=== PATIENT | female | born 1995 | race Caucasian/White ===

== ENCOUNTER 2017-03-25 08:59 | Emergency (ER) | payer OTHER ==
[~2017-03-25] VITALS: Ht 154.9 cm; Wt 72.0 kg
[~2017-03-25 08:59] MED LIST: Z.0.NO CURRENT MEDS
[2017-03-25 09:00] VITALS: BP 124/79; PULSE 102; RESP 12; TEMP 98.8; O2SAT 99
[2017-03-25] MEDS ORDERED: ACETAMINOPHEN 325 MG TAB PO ONE (10:15)
[2017-03-25] MEDS ORDERED: SODIUM CHLORIDE 0.9% FLUSH 10 ML FLUSH IV FLUSH PRN (10:15)
--- NOTE | 2017-03-25 10:17 | PD ---
HPI Chief Complaint: Related Problem Time Seen by Provider: 10:08 Travel History International Travel<30 days: No Contact w/Intl Traveler<30days: No Traveled to known affect area: No History of Present Illness HPI patient is a 21-year-old female at approximately 2 weeks gestational age presents emergency department for evaluation of lower quadrant abdominal cramping and some mild spotting. Patient states she think she is now. She states the pain is fairly mild, no nausea no vomiting no diarrhea no constipation or loss of fluid. She states that her second didn't in miscarriage a few months ago. Does not know her blood type. States the pain is mild nonradiating constant, associated with vaginal spotting, context is , duration is this morning. PFSH Past Medical History Medical History: Denies Significant Hx Diminished Hearing: No Immunizations Current: Yes ?: LMP: 02/14/17 : 3 Para: 1 Miscarriage: 1 Past Surgical History Surgical History: No Previous Surgery Social History Alcohol Use: No Tobacco Use: No Substance Use: No Allergies-Medications (Allergen,Severity, Reaction): Coded Allergies: No Known Allergies (Unverified , 03/25/17) Reported Meds & Prescriptions Reported Meds & Active Scripts Active Plus Iron 29-1 mg ( Vit-Iron Carbonyl) 29 Mg Iron-1 Mg Tab 1 Tab PO DAILY Macrobid (Nitrofurantoin Monoh/Nitrofur Macro) 100 Mg Cap 100 Mg PO BID 7 Days Review of Systems Except as stated in HPI: all other systems reviewed are Neg Physical Exam Narrative GENERAL: Well-developed well-nourished in no obvious distress SKIN: Focused skin assessment warm/dry. HEAD: Atraumatic. Normocephalic. EYES: Pupils equal and round. No scleral icterus. No injection or drainage. ENT: No nasal bleeding or discharge. Mucous membranes pink and moist. NECK: Trachea midline. No JVD. CARDIOVASCULAR: Regular rate and rhythm. No murmur appreciated. RESPIRATORY: No accessory muscle use. Clear to auscultation. Breath sounds equal bilaterally. GASTROINTESTINAL: Abdomen soft, non-tender, nondistended. Hepatic and splenic margins not palpable. Genitourinary: Declined by patient. MUSCULOSKELETAL: No obvious deformities. No clubbing. No cyanosis. No edema. NEUROLOGICAL: Awake and alert. No obvious cranial nerve deficits. Motor grossly within normal limits. Normal speech. PSYCHIATRIC: Appropriate mood and affect; insight and judgment normal. Data Data Last Documented VS Vital Signs Date Time Temp Pulse Resp B/P (MAP) Pulse Ox O2 Delivery O2 Flow Rate FiO2 03/25/17 13:20 03/25/17 13:19 76 14 98 03/25/17 10:35 Room Air 03/25/17 09:00 98.8 Orders Orders Urinalysis - C+S If Indicated (03/25/17 10:07) Ed Urine Pregnancytest Poc (03/25/17 10:07) Beta Hcg (Quant/Titer) (03/25/17 10:15) Complete Blood Count With Diff (03/25/17 10:15) Comprehensive Metabolic Panel (03/25/17 10:15) Iv Access Insert/Monitor (03/25/17 10:15) Ecg Monitoring (03/25/17 10:15) Oximetry (03/25/17 10:15) Sodium Chloride 0.9% Flush (Ns Flush) (03/25/17 10:15) Acetaminophen (Tylenol) (03/25/17 10:15) Type And Screen (03/25/17 10:15) Us Pelvis (Ques Pr/Ect)W Trans (03/25/17 11:20) Ed Discharge Order (03/25/17 13:05) Labs Laboratory Tests Test 03/25/17 10:30 White Blood Count 8.5 TH/MM3 Red Blood Count 4.37 MIL/MM3 Hemoglobin 12.4 GM/DL Hematocrit 37.7 % Mean Corpuscular Volume 86.3 FL Mean Corpuscular Hemoglobin 28.5 PG Mean Corpuscular Hemoglobin Concent 33.0 % Red Cell Distribution Width 13.7 % Platelet Count 335 TH/MM3 Mean Platelet Volume 7.7 FL Neutrophils (%) (Auto) 70.6 % Lymphocytes (%) (Auto) 24.2 % Monocytes (%) (Auto) 4.6 % Eosinophils (%) (Auto) 0.3 % Basophils (%) (Auto) 0.3 % Neutrophils # (Auto) 6.0 TH/MM3 Lymphocytes # (Auto) 2.1 TH/MM3 Monocytes # (Auto) 0.4 TH/MM3 Eosinophils # (Auto) 0.0 TH/MM3 Basophils # (Auto) 0.0 TH/MM3 CBC Comment DIFF FINAL Differential Comment Urine Color YELLOW Urine Turbidity CLEAR Urine pH 6.0 Urine Specific [place] 1.025 Urine Protein TRACE mg/dL Urine Glucose (UA) NEG mg/dL Urine Ketones NEG mg/dL Urine Occult Blood NEG Urine Nitrite NEG Urine Bilirubin NEG Urine Urobilinogen LESS THAN 2.0 MG/DL Urine Leukocyte Esterase SMALL Urine RBC LESS THAN 1 /hpf Urine WBC 2 /hpf Urine Squamous Epithelial Cells 2 /hpf Urine Bacteria RARE /hpf Urine Mucus FEW /lpf Microscopic Urinalysis Comment CULT NOT INDICATED Blood Urea Nitrogen 9 MG/DL Creatinine 0.56 MG/DL Random Glucose 85 MG/DL Total Protein 7.6 GM/DL Albumin 3.8 GM/DL Calcium Level 9.0 MG/DL Alkaline Phosphatase 59 U/L Aspartate Amino Transf (AST/SGOT) 11 U/L Alanine Aminotransferase (ALT/SGPT) 25 U/L Total Bilirubin 0.3 MG/DL Sodium Level 135 MEQ/L Potassium Level 4.1 MEQ/L Chloride Level 106 MEQ/L Carbon Dioxide Level 21.4 MEQ/L Anion Gap 8 MEQ/L Estimat Glomerular Filtration Rate 134 ML/MIN Human Chorionic Gonadotropin, Quant 3741 MIU/ML [facility] Medical Decision Making Medical Screen Exam Complete: Yes Emergency Medical Condition: Yes Differential Diagnosis vaginal bleeding and , ectopic , round ligament pain, Rh mismatch. Narrative Course patient roomed emerged Department, hCG is 3000, Rh is positive. Remainder of her labs are unremarkable. Her abdomen is benign. She was given Tylenol and on reassessment she is feeling better and is eating. Official ultrasound was obtained shows Last 24 hours Impressions Pelvis Ultrasound 03/25/17 1120 Signed Impressions: Service Date/Time: Saturday, March 25, 2017 11:42 - CONCLUSION: Probable early gestation. I cannot confirm cardiac activity. Follow up is suggested. Garry Hare MD FACR Discussed with the patient cannot completely confirm intrauterine of her recommended return to emergency department in 48 hours for repeat labs and consideration of repeat ultrasound. She verbalized understanding and agreement. She is feeling well and she stable for discharge. Discussed with her exam needs to be done in the near future and she declined it at this time. Diagnosis Primary Impression: Abdominal pain affecting Additional Impression: Asymptomatic bacteriuria Referrals: Meaghan Mccollum MD Additional Instructions: Recommend return to the emergency department in 48 hours for repeat blood work and possibly repeat ultrasound. Follow-up with your VET TECH. Med/Other Pt SpecificInfo: Prescription(s) given Scripts Vit-Iron Carbonyl ( Plus Iron 29-1 mg) 29 Mg Iron-1 Mg Tab 1 TAB PO DAILY for Nutritional Supplement, #30 TAB 9 Refills Prov: Boubacar Petit MD 03/25/17 Nitrofurantoin Monohydrate Macrocrystals (Macrobid) 100 Mg Cap 100 MG PO BID for Infection for 7 Days, #14 CAP 0 Refills Prov: Boubacar Petit MD 03/25/17 Disposition: 01 DISCHARGE HOME Condition: Stable Boubacar Petit MD Mar 25, 2017 10:17
[2017-03-25 10:35] VITALS: O2SAT 97
[2017-03-25 10:42] LABS: BASOPHIL % 0.3 % (0.0-2.0); EOSINOPHIL % 0.3 % (0.0-4.0); HEMATOCRIT 37.7 % (35.0-46.0); HEMO FLAGS DIFF FINAL; LYMPH % 24.2 % (9.0-44.0); LYMPHOCYTE # 2.1 TH/MM3 (1.0-4.8); MEAN CELL VOLUME 86.3 FL (80.0-100.0); MEAN CORPUSCULAR HEMOGLOBIN 28.5 PG (27.0-34.0); MONO % 4.6 % (0.0-8.0); NEUT % 70.6 % (16.0-70.0); PLATELET COUNT 335 TH/MM3 (150-450); RED BLOOD COUNT 4.37 MIL/MM3 (4.00-5.30); RED CELL DISTRIBUTION WIDTH 13.7 % (11.6-17.2); WHITE BLOOD COUNT 8.5 TH/MM3 (4.0-11.0)
[2017-03-25 11:00] LABS: ALT (GPT) 25 U/L (10-53); ANION GAP 8 MEQ/L (5-15); AST (GOT) 11 U/L (15-37); BICARBONATE 21.4 MEQ/L (21.0-32.0); BLOOD UREA NITROGEN 9 MG/DL (7-18); CHLORIDE 106 MEQ/L (98-107); GLOMERULAR FILTRATION RATE 134 ML/MIN (>89); POTASSIUM 4.1 MEQ/L (3.5-5.1); SODIUM (NA) 135 MEQ/L (136-145)
[2017-03-25 11:07] LABS: BACTERIA, URINE RARE /hpf; BLOOD, URINE NEG (NEG); COMMENT (UR) CULT NOT INDICATED; CULTURE IF INDICATED CULT NOT INDICATED; GLUCOSE,URINE NEG (NEG); KETONE, URINE NEG (NEG); MUCUS URINE FEW /lpf (OCC); NITRITE,URINE NEG (NEG); SQUAMOUS EPITHELIAL CELL URINE 2 /hpf (0-5); URINE COLOR YELLOW (YELLW/STRAW)
[2017-03-25 11:16] LABS: ALKALINE PHOSPHATASE 59 U/L (45-117); BETA HCG QUANT 3741 MIU/ML (0-5); TOTAL BILIRUBIN ADULT 0.3 MG/DL (0.2-1.0)
[2017-03-25 12:26] VITALS: BP 117/72; PULSE 80; RESP 14; O2SAT 98
--- NOTE | 2017-03-25 12:58 | RADRPT ---
EXAM DATE/TIME: 03/25/2017 11:42 [facility] COMPARISON: No previous studies available for comparison. INDICATIONS : Pelvic pain. LAB(S): Beta-hC MEDICAL HISTORY : . SURGICAL HISTORY : None. ENCOUNTER: Subsequent ACUITY: 1 day PAIN SCORE: 5/10 LOCATION: Bilateral pelvis MEASUREMENTS: UTERUS: 9.5 x 6.3 x 4.8 cm ENDOMETRIAL STRIPE: 17 mm RIGHT OVARY: 3.4 x 3.2 x 1.5 cm LEFT OVARY: 3.0 x 4.3 x 1.9 cm CROWN RUMP LENGTH: not seen = WKS DAYS FHR: not seen BPM FINDINGS: UTERUS: I believe is the gestational sac present within yolk sac in the uterus. RIGHT OVARY: 1.2 cm cyst LEFT OVARY: 1.3 centers S. MISCELLANEOUS: No free fluid. CONCLUSION: Probable early gestation. I cannot confirm cardiac activity. Follow up is suggested . Garry Hare MD FACR on March 25, 2017 at 12:55 Board Certified Radiologist. This report was verified electronically.
[2017-03-25] MEDS ORDERED: PREN29TA PO (13:04)
[2017-03-25] MEDS ORDERED: MACR100C2 PO (13:04)
[2017-03-25 13:19] VITALS: BP 120/78; PULSE 76; RESP 14; O2SAT 98
== END 2017-03-25 13:21 | disposition home or self-care (01) ==
LOC: NEPD 08:59
DX: O26.891 Other specified pregnancy related conditions, first trimester (principal); R10.2 Pelvic and perineal pain; Z3A.01 Less than 8 weeks gestation of pregnancy
CPT/HCPCS: 76700; 76817; 80053; 81001; 84702; 84703; 85025; 86850; 86900; 86901; 99285

== ENCOUNTER 2017-03-27 09:36 | Emergency (ER) | payer OTHER ==
[~2017-03-27] VITALS: Ht 154.9 cm; Wt 75.0 kg
[~2017-03-27 09:36] MED LIST changes: +MACR100C2 PO; +PREN29TA PO; -Z.0.NO CURRENT MEDS
[2017-03-27 09:37] VITALS: BP 121/68; PULSE 85; RESP 14; TEMP 98.8; O2SAT 96
[2017-03-27 10:00] VITALS: BP 112/61; PULSE 86; RESP 18; O2SAT 97
[2017-03-27 11:40] LABS: BETA HCG QUANT 5268 MIU/ML (0-5)
--- NOTE | 2017-03-27 12:01 | PD ---
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 She is , last initial period was February 14, she is a history of a previous miscarriage in December. She is having ongoing lower abdominal pain and spotting. Patient was seen emergency card 2 days ago and was recommended to follow-up for repeat labs. History Past Medical History Medical History: Denies Significant Hx Tetanus Vaccination: Unknown Influenza Vaccination: No LMP: 02/14/17 : 3 Para: 1 Past Surgical History Surgical History: No Previous Surgery Social History Alcohol Use: No Tobacco Use: No Allergies-Medications (Allergen,Severity, Reaction): Coded Allergies: No Known Allergies (Unverified , 03/27/17) Reported Meds & Prescriptions Reported Meds & Active Scripts Active Plus Iron 29-1 mg ( Vit-Iron Carbonyl) 29 Mg Iron-1 Mg Tab 1 Tab PO DAILY Macrobid (Nitrofurantoin Monoh/Nitrofur Macro) 100 Mg Cap 100 Mg PO BID 7 Days Review of Systems Except as stated in HPI: all other systems reviewed are Neg Physical Exam Narrative GENERAL: Well-appearing 20 year-old woman, no acute distress. SKIN: Focused skin assessment warm/dry. HEAD: Atraumatic. Normocephalic. EYES: Pupils equal and round. No scleral icterus. No injection or drainage. ENT: No nasal bleeding or discharge. Mucous membranes pink and moist. NECK: Trachea midline. No JVD. CARDIOVASCULAR: Regular rate and rhythm. No murmur appreciated. RESPIRATORY: No accessory muscle use. Clear to auscultation. Breath sounds equal bilaterally. GASTROINTESTINAL: Abdomen flat and soft. Minimal lower abdominal tenderness. MUSCULOSKELETAL: No obvious deformities. : Normal external female genitalia. Scant discharge. Mild cervical motion tenderness. No palpable uterine enlargement or adnexal masses. Data Data Last Documented VS Vital Signs Date Time Temp Pulse Resp B/P (MAP) Pulse Ox O2 Delivery O2 Flow Rate FiO2 03/27/17 10:00 86 18 112/61 (78) 97 Room Air 03/27/17 09:37 98.8 Orders Orders Beta Hcg (Quant/Titer) (03/27/17 10:14) Us Pelvis (Ques Pr/Ect)W Trans (03/27/17 ) Labs Laboratory Tests Test 03/27/17 10:35 Human Chorionic Gonadotropin, Quant 5268 MIU/ML [facility] Medical Decision Making Medical Screen Exam Complete: Yes Emergency Medical Condition: Yes Interpretation(s) LABS: HCG 5268 Pelvic ultrasound: [place] intrauterine gestation at 5 weeks 1 day, no heart activity. Differential Diagnosis Threatened AB, ectopic, miscarriage, missed demise, other Narrative Course Medical decision making Is a 20 year-old woman presents emergent arm for evaluation for possible demise. Ultrasound showed what they thought was a shooting but it sounds like there is still some concern based on the ultrasound. There is no cardiac activity. HCG is increasing but not doubling. We'll get a repeat ultrasound and then likely outpatient follow-up. FINAL: 20 year-old woman, intrauterine , early, no definable heart activity at this point. Likely early. She is considering terminating . Recommend outpatient follow-up. Diagnosis Primary Impression: Threatened Additional Impression: Intrauterine Additional Instructions: Follow-up with an laborer hoisting for further evaluation. Take [id number] vitamins daily. Return to the emergency department for any worsening abdominal pain, or any other new or worsening symptoms. Med/Other Pt SpecificInfo: No Change to Meds Disposition: 01 DISCHARGE HOME Condition: Stable Harry Hernandez MD Mar 27, 2017 12:01
--- NOTE | 2017-03-27 13:25 | RADRPT ---
EXAM DATE/TIME: 03/27/2017 12:32 [facility] COMPARISON: US PELVIS (QUEST PREG/ECTOPIC) W/TRANSVAG, March 25, 2017, 11:42. INDICATIONS : Pelvic pain with . LAB(S): Beta-hC,268 MEDICAL HISTORY : . SURGICAL HISTORY : None. ENCOUNTER: Subsequent ACUITY: 4-6 days PAIN SCORE: 7/10 LOCATION: Bilateral pelvis MEASUREMENTS: UTERUS: 9.6 x 5.6 x 5.1 cm ENDOMETRIAL STRIPE: 14 mm RIGHT OVARY: 2.8 x 3.4 x 1.5 cm LEFT OVARY: 3.7 x 3.7 x 2.7 cm FREE FLUID: Yes posterior cul de sac CROWN RUMP LENGTH: 0.2 cm = OOR WKS DAYS FHR: Nonvisualized BPM FINDINGS: UTERUS: A single intrauterine gestation observed. A gestational sac is observed with mean sac diameter of 1.0 6 cm which equals 5 weeks one day gestational age. A yolk sac and pole are observed. The crown- rump length is 0.18 cm which is below the threshold for accurate gestational age evaluation. No heart rate activity is able to be identified on the current exam. A small simple nabothian cyst. RIGHT OVARY: Ovary contains no mass or significant cystic lesion. LEFT OVARY: A 1.3 cm simple cyst is seen involving the left ovary. The left ovary is otherwise unremarkable. MISCELLANEOUS: A trace amount of free fluid in the cul-de-sac. CONCLUSION: 1. Solitary intrauterine gestation. The age by mean sac diameter is 5 weeks one day. No heart r ate activity is currently detectable but this may relate to early gestational age. Followup ultrasoun d is suggested. 2. 1.3 cm simple left ovarian cyst. Piyush Negrete Jr., MD on March 27, 2017 at 13:16 Board Certified Radiologist. This report was verified electronically.
[2017-03-27 13:36] VITALS: BP 117/63; PULSE 83; RESP 17; O2SAT 97
[2017-03-27 13:40] VITALS: BP 117/63
== END 2017-03-27 13:56 | disposition home or self-care (01) ==
LOC: NEPD 09:36
DX: O20.0 Threatened abortion (principal); Z3A.01 Less than 8 weeks gestation of pregnancy
CPT/HCPCS: 76700; 76817; 84702

== ENCOUNTER 2017-05-17 17:09 | Emergency (ER) | payer OTHER ==
[~2017-05-17] VITALS: Ht 154.9 cm; Wt 70.0 kg
[2017-05-17 17:11] VITALS: BP 125/76; PULSE 87; RESP 18; TEMP 98; O2SAT 99
[2017-05-17 18:37] LABS: BETA HCG QUANT 50608 MIU/ML (0-5)
--- NOTE | 2017-05-17 19:33 | PD ---
HPI Chief Complaint: Related Problem Time Seen by Provider: 19:31 Travel History International Travel<30 days: No Contact w/Intl Traveler<30days: No Traveled to known affect area: No History of Present Illness HPI This patient was examined in the presence of a female nurse at all times. This is a 21-year-old female whose last menstrual period was February 14. Her blood type is O+. She has been experiencing vaginal cramping. This has been ongoing for several days. She endorses occasional spotting after sex. She has been unable to establish care with POOL SERVICER. She has been seen her twice in the past for evaluation of this . Most recently she was seen here in March 27. She had formal ultrasound revealing an intrauterine of 5 weeks and 1 day too early for cardiac activity. She has been attempting to establish care with an POOL SERVICER but so far unsuccessful. She endorses some nausea with her . Denies dysuria, fevers or chills. No other complaints. PFSH Past Medical History Diminished Hearing: No Immunizations Current: Yes ?: : 3 Para: 1 Miscarriage: 1 Social History Alcohol Use: No Tobacco Use: No Substance Use: No Allergies-Medications (Allergen,Severity, Reaction): Coded Allergies: No Known Allergies (Unverified Adverse Reaction, Unknown, 05/17/17) Reported Meds & Prescriptions Reported Meds & Active Scripts Active Plus Iron 29-1 mg ( Vit-Iron Carbonyl) 29 Mg Iron-1 Mg Tab 1 Tab PO DAILY Macrobid (Nitrofurantoin Monoh/Nitrofur Macro) 100 Mg Cap 100 Mg PO BID 7 Days Review of Systems Except as stated in HPI: all other systems reviewed are Neg Physical Exam Narrative GENERAL: Well-developed well-nourished female in no acute distress SKIN: Warm and dry. HEAD: Atraumatic. Normocephalic. EYES: Pupils equal and round. No scleral icterus. No injection or drainage. ENT: No nasal bleeding or discharge. Mucous membranes pink and moist. NECK: Trachea midline. No JVD. CARDIOVASCULAR: Regular rate and rhythm. No murmur appreciated. RESPIRATORY: No accessory muscle use. Clear to auscultation. Breath sounds equal bilaterally. GASTROINTESTINAL: Abdomen soft, non-tender, nondistended. Hepatic and splenic margins not palpable. Bedside ultrasound reveals intrauterine with heart tones of 130 MUSCULOSKELETAL: No obvious deformities. No clubbing. No cyanosis. No edema. NEUROLOGICAL: Awake and alert. No obvious cranial nerve deficits. Motor grossly within normal limits. Normal speech. PSYCHIATRIC: Appropriate mood and affect; insight and judgment normal. Data Data Last Documented VS Vital Signs Date Time Temp Pulse Resp B/P (MAP) Pulse Ox O2 Delivery O2 Flow Rate FiO2 05/17/17 17:11 98.0 87 18 125/76 (92) 99 Orders Orders Beta Hcg (Quant/Titer) (05/17/17 17:38) Labs Laboratory Tests Test 05/17/17 17:40 Human Chorionic Gonadotropin, Quant 37253 MIU/ML [facility] Medical Decision Making Medical Screen Exam Complete: Yes Emergency Medical Condition: Yes Medical Record Reviewed: Yes Differential Diagnosis Round ligament pain, Intrauterine , threatened , missed , ectopic , cystitis Narrative Course 21-year-old female with a known , last menstrual period February 15, intrauterine too early for cardiac activity on formal ultrasound in March presents with pelvic cramping. Ultrasound performed today reveals intrauterine with a heart rate of 130. Patient is most likely experiencing round ligament pain. She is encouraged to establish care with an POOL SERVICER and continue taking vitamins. She is stable for discharge. Diagnosis Primary Impression: Intrauterine Referrals: Manager Purchasing Additional Instructions: Establish care with an cut out worker to continue management of your . Return for any emergent medical conditions. Med/Other Pt SpecificInfo: No Change to Meds Disposition: 01 DISCHARGE HOME Condition: Stable Hal Christopher May 17, 2017 19:33
== END 2017-05-17 20:14 | disposition home or self-care (01) ==
LOC: NEPD 17:09
DX: O26.891 Other specified pregnancy related conditions, first trimester (principal); R10.9 Unspecified abdominal pain; Z79.899 Other long term (current) drug therapy; Z34.91 Encounter for supervision of normal pregnancy, unspecified, first trimester
CPT/HCPCS: 84702; 99283

== ENCOUNTER 2017-06-12 20:03 | Emergency (ER) | payer OTHER ==
[~2017-06-12 20:03] MED LIST changes: +AZIT500T2 PO; +FERRTAB2 PO; -MACR100C2 PO; -PREN29TA PO; +TERC0.8C VAGINAL
[2017-06-12 20:05] VITALS: BP 118/62; PULSE 90; RESP 17; TEMP 98.7; O2SAT 100
--- NOTE | 2017-06-12 20:43 | PD ---
HPI Chief Complaint: Syncope/Near-Syncope Time Seen by Provider: 20:26 Travel History International Travel<30 days: No Contact w/Intl Traveler<30days: No Traveled to known affect area: No History of Present Illness HPI 21-year-old female complains of syncope and abdominal cramping. Patient is about 17 weeks . Patient has been seen by [facility]. Patient had blood tests and ultrasound during this . Patient states that she has intermittent nausea vomiting during this . Patient states that she has a syncopal episode which lasted a few seconds today. Patient did not injure herself denies episode. Patient denies any headache. Patient denies any chest pain or shortness of breath. Patient denies any coughing congestion. Patient denies fever chills. Patient states that she has intermittent abdominal cramping. Patient denies any vaginal discharge or bleeding. Patient denies any dysuria or frequency. Patient states that she has poor appetite recently. PFSH Past Medical History Diminished Hearing: No Immunizations Current: Yes ?: LMP: February : 3 Para: 2 Miscarriage: 1 Social History Alcohol Use: No Tobacco Use: No Substance Use: No Allergies-Medications (Allergen,Severity, Reaction): Coded Allergies: No Known Allergies (Unverified Adverse Reaction, Unknown, 05/28/17) Reported Meds & Prescriptions Reported Meds & Active Scripts Active Ferralet (Multi-Vit/Iron-Folic Jium-V54-Exo C) 90-1-0.012-120 mg Tab 1 Caplet PO DAILY 30 Days Terconazole Vaginal Cream 0.8 % Cream 1 Appl VAGINAL HS For 3 days. Azithromycin 500 Mg Tab 500 Mg PO ONCE Review of Systems General / Constitutional: No: Fever Eyes: No: Visual changes HENT: No: Headaches Cardiovascular: No: Chest Pain or Discomfort Respiratory: No: Shortness of Breath Gastrointestinal: Positive: Nausea, Vomiting, Abdominal Pain Genitourinary: No: Dysuria Musculoskeletal: No: Pain Skin: No Rash Neurologic: Positive: Syncope, No: Weakness Psychiatric: No: Depression Endocrine: No: Polydipsia Hematologic/Lymphatic: No: Easy Bruising Physical Exam Narrative GENERAL: Well-nourished, well-developed patient. SKIN: Focused skin assessment warm/dry. HEAD: Normocephalic. EYES: No scleral icterus. No injection or drainage. NECK: Supple, trachea midline. No JVD or lymphadenopathy. CARDIOVASCULAR: Regular rate and rhythm without murmurs, gallops, or rubs. RESPIRATORY: Breath sounds equal bilaterally. No accessory muscle use. GASTROINTESTINAL: Abdomen soft, non-tender, nondistended. MUSCULOSKELETAL: No cyanosis, or edema. BACK: Nontender without obvious deformity. No CVA tenderness. Neurologic exam normal. Data Data Last Documented VS Vital Signs Date Time Temp Pulse Resp B/P (MAP) Pulse Ox O2 Delivery O2 Flow Rate FiO2 06/12/17 20:05 98.7 90 17 118/62 (80) 100 Room Air Orders Orders Complete Blood Count With Diff (06/12/17 20:39) Basic Metabolic Panel (Bmp) (06/12/17 20:39) Urinalysis - C+S If Indicated (06/12/17 20:39) Iv Access Insert/Monitor (06/12/17 20:39) Labs Laboratory Tests Test 06/12/17 20:53 White Blood Count 11.2 TH/MM3 Red Blood Count 3.61 MIL/MM3 Hemoglobin 10.4 GM/DL Hematocrit 31.0 % Mean Corpuscular Volume 85.9 FL Mean Corpuscular Hemoglobin 28.7 PG Mean Corpuscular Hemoglobin Concent 33.4 % Red Cell Distribution Width 14.2 % Platelet Count 278 TH/MM3 Mean Platelet Volume 8.1 FL Neutrophils (%) (Auto) 68.9 % Lymphocytes (%) (Auto) 25.6 % Monocytes (%) (Auto) 4.7 % Eosinophils (%) (Auto) 0.4 % Basophils (%) (Auto) 0.4 % Neutrophils # (Auto) 7.7 TH/MM3 Lymphocytes # (Auto) 2.9 TH/MM3 Monocytes # (Auto) 0.5 TH/MM3 Eosinophils # (Auto) 0.0 TH/MM3 Basophils # (Auto) 0.0 TH/MM3 CBC Comment DIFF FINAL Differential Comment Urine Color YELLOW Urine Turbidity HAZY Urine pH 6.0 Urine Specific [place] 1.029 Urine Protein TRACE mg/dL Urine Glucose (UA) NEG mg/dL Urine Ketones 10 mg/dL Urine Occult Blood NEG Urine Nitrite NEG Urine Bilirubin NEG Urine Urobilinogen LESS THAN 2.0 MG/DL Urine Leukocyte Esterase SMALL Urine WBC 1 /hpf Urine Squamous Epithelial Cells 3 /hpf Urine Bacteria RARE /hpf Urine Mucus MANY /lpf Microscopic Urinalysis Comment CULT NOT INDICATED Blood Urea Nitrogen 9 MG/DL Creatinine 0.47 MG/DL Random Glucose 94 MG/DL Calcium Level 8.7 MG/DL Sodium Level 138 MEQ/L Potassium Level 3.6 MEQ/L Chloride Level 105 MEQ/L Carbon Dioxide Level 24.3 MEQ/L Anion Gap 9 MEQ/L Estimat Glomerular Filtration Rate 164 ML/MIN [facility]DM Medical Decision Making Medical Screen Exam Complete: Yes Emergency Medical Condition: Yes Interpretation(s) 21:35 PM. CBC within normal limit. BMP within normal limit. UA negative. Differential Diagnosis Differential diagnosis including vasovagal reaction, electrolyte abnormality, dehydration, arrhythmia, Narrative Course 21-year-old female with syncope, abdominal cramping. Patient is 17 weeks . Patient has history of intermittent nausea vomiting during this . Procedures Procedure Narrative Emergency Department Pelvic ultrasound was performed with patient consent. The curvilinear probe was used in the transverse and sagittal views within the suprapubic region revealing single intrauterine . heart rate was 146. Diagnosis Primary Impression: Syncope Qualified Codes: R55 - Syncope and collapse Additional Impression: Qualified Codes: Z3A.17 - 17 weeks gestation of Patient Instructions: General Instructions Additional Instructions: Follow-up with personal physician. Return as needed. Return immediately if increasing abdominal pain and vaginal bleeding. Med/Other Pt SpecificInfo: No Meds Exist/No RX given Disposition: 01 DISCHARGE HOME Keon Schaffer MD Jun 12, 2017 20:43
[2017-06-12 21:00] LABS: AUTOMATED NEUTROPHIL # 7.7 TH/MM3 (1.8-7.7); BASOPHIL % 0.4 % (0.0-2.0); EOSINOPHIL % 0.4 % (0.0-4.0); HEMOGLOBIN 10.4 GM/DL (11.6-15.3); LYMPH % 25.6 % (9.0-44.0); LYMPHOCYTE # 2.9 TH/MM3 (1.0-4.8); MEAN CELL VOLUME 85.9 FL (80.0-100.0); MEAN CORPUSCULAR HEMOGLOBIN 28.7 PG (27.0-34.0); MEAN CORPUSCULAR HGB CONC 33.4 % (32.0-36.0); MEAN PLATELET VOLUME 8.1 FL (7.0-11.0); MONO % 4.7 % (0.0-8.0); MONOCYTE # 0.5 TH/MM3 (0-0.9); NEUT % 68.9 % (16.0-70.0); PLATELET COUNT 278 TH/MM3 (150-450); RED BLOOD COUNT 3.61 MIL/MM3 (4.00-5.30); RED CELL DISTRIBUTION WIDTH 14.2 % (11.6-17.2); WHITE BLOOD COUNT 11.2 TH/MM3 (4.0-11.0)
[2017-06-12 21:25] LABS: BACTERIA, URINE RARE /hpf; BILIRUBIN, URINE NEG (NEG); BLOOD, URINE NEG (NEG); GLUCOSE,URINE NEG (NEG); KETONE, URINE 10 mg/dL (NEG); MUCUS URINE MANY /lpf (OCC); NITRITE,URINE NEG (NEG); SQUAMOUS EPITHELIAL CELL URINE 3 /hpf (0-5); URINE COLOR YELLOW (YELLW/STRAW); URINE LEUKOCYTE ESTERASE SMALL (NEG)
[2017-06-12 21:34] LABS: BICARBONATE 24.3 MEQ/L (21.0-32.0); CALCIUM 8.7 MG/DL (8.5-10.1); CREATININE 0.47 MG/DL (0.50-1.00)
== END 2017-06-12 21:53 | disposition home or self-care (01) ==
LOC: NEPE 20:03
DX: O26.892 Other specified pregnancy related conditions, second trimester (principal); R55 Syncope and collapse; O21.9 Vomiting of pregnancy, unspecified; Z3A.17 17 weeks gestation of pregnancy; Z79.899 Other long term (current) drug therapy
CPT/HCPCS: 80048; 81001; 85025; 99284

== ENCOUNTER 2017-10-01 19:19 | Emergency (ER) | payer OTHER ==
[~2017-10-01] VITALS: Ht 154.9 cm; Wt 83.5 kg
[~2017-10-01 19:19] MED LIST changes: -AZIT500T2 PO; -TERC0.8C VAGINAL
[2017-10-01 21:07] LABS: BILIRUBIN, URINE NEG (NEG); BLOOD, URINE NEG (NEG); GLUCOSE,URINE NEG (NEG); KETONE, URINE NEG (NEG); MUCUS URINE FEW /lpf (OCC); NITRITE,URINE NEG (NEG); PH, URINE 6.5 (5.0-8.5); SQUAMOUS EPITHELIAL CELL URINE 4 /hpf (0-5); URINE COLOR YELLOW (YELLW/STRAW); URINE LEUKOCYTE ESTERASE TRACE (NEG)
[2017-10-01] MEDS ORDERED: TERBUTALINE INJ 1 MG/ML AMP ONE (21:32)
[2017-10-01] MEDS ORDERED: TERBUTALINE INJ 1 MG/ML AMP SQ ONE (21:45)
--- NOTE | 2017-10-01 22:14 | PD ---
HPI Chief Complaint ctxs Date Seen: Oct 01, 2017 Time Seen: 22:13 Travel History International Travel<30 Days: No Contact w/Intl Traveler<30Days: No Known Affected Area: No History of Present Illness HPI pt. ia 22 y/o @ 32 weeks present w/ contractions. pt. states had ctxs thruout the day that increased in freq and intensity thruout the day. pt. cervix checked on admission and /high/post. pt. given shot of terbutaline and hydrated w/o cervical change. Weeks Gestation: 32 Para: 1 : 3 History Past Medical History Medical History: Denies Significant Hx Obstetric History Obstetric History , s/p x 1, s/p sab Past Surgical History Surgical History: No Previous Surgery Family History Family History: Negative Social History Alcohol Use: No Tobacco Use: No Substance Abuse: No Allergies-Medications (Allergen,Severity, Reaction): Coded Allergies: No Known Allergies (Unverified Adverse Reaction, Unknown, 10/01/17) Home Meds Active Scripts Multi-Vit/Iron-Folic [id number] C (Ferralet) 90-1-0.012-120 mg Tab, 1 CAPLET PO DAILY for 30 Days, #30 CAPLET 2 [facility] Review of Systems Except as stated in HPI: all other systems reviewed are Neg Physical Exam Narrative GENERAL: Well-nourished, well-developed patient. SKIN: Warm and dry. HEAD: Normocephalic and atraumatic. EYES: No scleral icterus. No injection or drainage. ENT: No nasal drainage noted. Mucous membranes pink. Airway patent. NECK: Supple, trachea midline. No JVD. CARDIOVASCULAR: Regular rate and rhythm without murmurs, gallops, or rubs. RESPIRATORY: Breath sounds equal bilaterally. No accessory muscle use. ABDOMEN/GI: Abdomen soft, non-tender, bowel sounds present, no rebound, no guarding Gravid GENITOURINARY: External Genitalia: intact and normal in appearance Dilatation: 1 Effacement:50 Station:high Uterine Contractions: 1rreg FHT's: Category: 1 Reactive: + Variability: mod EXTREMITIES: No cyanosis or edema. BACK: Nontender without obvious deformity. No CVA tenderness. NEUROLOGICAL: Awake and alert. Motor and sensory grossly within normal limits. Five out of 5 muscle strength in all muscle groups. Normal speech. Data Data Orders Orders Urinalysis - C+S If Indicated (10/01/17 20:35) Terbutaline Inj (Brethine Inj) (10/01/17 21:32) Terbutaline Inj (Brethine Inj) (10/01/17 21:45) [place] Clear For Discharge (10/01/17 ) Labs Laboratory Tests Test 10/01/17 19:45 Urine Color YELLOW Urine Turbidity CLEAR Urine pH 6.5 Urine Specific [place] 1.023 Urine Protein NEG Urine Glucose (UA) NEG Urine Ketones NEG Urine Occult Blood NEG Urine Nitrite NEG Urine Bilirubin NEG Urine Urobilinogen LESS THAN 2.0 Urine Leukocyte Esterase TRACE Urine Squamous Epithelial Cells 4 Urine Mucus FEW Microscopic Urinalysis Comment CULT NOT INDICATED MDM Medical Record Reviewed: Yes Plan pt. w/ contractions not currently in active labor. condition d/w pt. pt. to have 2 doses of betamethasone. pt. to have 1st dose am of 10/02/17 and 2nd . all ? answered. pt. to be d/c to home. given precautions for return. f/ u as sched. Diagnosis Diagnosis: Primary Impression: False labor before 37 completed weeks of gestation Additional Impression: 32 weeks gestation of Disposition: DISCHARGE HOME Oc Joy Jr., MD Oct 01, 2017 22:14
[2017-10-02] MEDS ORDERED: BETAMETHASONE SOD PHOS/ACETATE SUSP 30 MG/5 ML VIAL IM ONE (08:00)
[2017-10-03] MEDS ORDERED: BETAMETHASONE SOD PHOS/ACETATE SUSP 30 MG/5 ML VIAL IM ONE (08:00)
== END 2017-10-01 22:25 | disposition home or self-care (01) ==
LOC: HOBED 19:19
DX: O47.03 False labor before 37 completed weeks of gestation, third trimester (principal); Z3A.32 32 weeks gestation of pregnancy
CPT/HCPCS: 59025; 81001; 96372; 99283; J3105

== ENCOUNTER 2017-10-02 08:39 | Emergency (ER) | payer OTHER ==
[2017-10-02] MEDS ORDERED: BETAMETHASONE SOD PHOS/ACETATE SUSP 30 MG/5 ML VIAL IM SCH (09:00)
--- NOTE | 2017-10-02 09:34 | PD ---
HPI Chief Complaint Betamethasone shot, possible ROM Date Seen: Oct 02, 2017 Time Seen: 09:31 Travel History International Travel<30 Days: No Contact w/Intl Traveler<30Days: No History of Present Illness HPI Pt is a 22 y/o @ 32 weeks presented initially for Betamethasone shot #1 but stated she may have ruptured due to small leak of fluid. She was seen in [facility] last night for CTX which are now eased up. No CTX, bleeding. Feeling baby move regularly. Last night, pt. cervix checked on admission and /high/post. pt. given shot of terbutaline and hydrated w/o cervical change. She did not need any tocolytics this morning. Amnisure negative at bedside. History Past Medical History Medical History: Denies Significant Hx Obstetric History Obstetric History , s/p x 1, s/p sab Past Surgical History Surgical History: No Previous Surgery Family History Family History: Negative Social History Alcohol Use: No Tobacco Use: No Substance Abuse: No Allergies-Medications (Allergen,Severity, Reaction): Coded Allergies: No Known Allergies (Unverified Adverse Reaction, Unknown, 10/01/17) Home Meds Active Scripts Multi-Vit/Iron-Folic Ipuf-[id number]-Vdd C (Ferralet) 90-1-0.012-120 mg Tab, 1 CAPLET PO DAILY for 30 Days, #30 CAPLET 2 Refills Prov:Andree Ramesh CNM [facility] 06/03/17 Review of Systems General / Constitutional: No: Fever, Chills Eyes: No: Diploplia, Visual changes HENT: No: Headaches, Vertigo Cardiovascular: No: Chest Pain or Discomfort, Palpitations Respiratory: No: Cough, Short of Breath Gastrointestinal: No: Nausea, Vomiting, Diarrhea, Abdominal Pain Genitourinary: No: Urgency, Dysuria Musculoskeletal: No: Weakness, Edema Skin: No Rash, No Itching Neurologic: No: Weakness, Syncope Psychiatric: No: Anxiety, Depression Physical Exam Narrative GENERAL: Well-nourished, well-developed patient. SKIN: Warm and dry. HEAD: Normocephalic and atraumatic. EYES: No scleral icterus. No injection or drainage. ENT: No nasal drainage noted. Mucous membranes pink. Airway patent. NECK: Supple, trachea midline. No JVD. CARDIOVASCULAR: Regular rate and rhythm without murmurs, gallops, or rubs. RESPIRATORY: Breath sounds equal bilaterally. No accessory muscle use. ABDOMEN/GI: Abdomen soft, non-tender, bowel sounds present, no rebound, no guarding. Gravid to 32 weeks. GENITOURINARY: deferred this morning. Amnisure negative. External Genitalia: intact and normal in appearance Membranes: anmisure negative Uterine Contractions: absent FHT's: Category: 1 Baseline: 130s Reactive: 150s Variability: mod Decels: absent EXTREMITIES: No cyanosis or edema. BACK: Nontender without obvious deformity. No CVA tenderness. NEUROLOGICAL: Awake and alert. Motor and sensory grossly within normal limits. Five out of 5 muscle strength in all muscle groups. Normal speech. Data Data Vital Signs Reviewed: Yes Orders Orders Betamethasone Inj ([place] Soluspan In (10/02/17 09:00) MDM Medical Record Reviewed: Yes Narrative Course / MDM Pt with labor on 10/01/17, controlled with tocolytics. Bethamethasone initiated this morning 10/02/2017, pt will return for repeat today. Pt to have 2nd dose 10/03/17. all ? answered. pt. to be d/c to home. given precautions for return. f/u as sched. PHILIP Joy Diagnosis Diagnosis: Primary Impression: False labor before 37 completed weeks of gestation Disposition: 01 DISCHARGE HOME Condition: Stable Patient Instructions: Abdominal Pain in (ED), Labor (ED) Latasha Hernandez MD R2 Oct 02, 2017 09:34
== END 2017-10-02 09:53 | disposition home or self-care (01) ==
LOC: HOBED 08:39
DX: O47.03 False labor before 37 completed weeks of gestation, third trimester (principal); Z3A.32 32 weeks gestation of pregnancy
CPT/HCPCS: 59025; 84112; 96372; 99283; J0702

== ENCOUNTER → 2017-10-03 | Outpatient (CLI) | payer OTHER ==
[~2017-10-03] MED LIST changes: +BETAMETHASONE SOD PHOS/ACETATE SUSP 30 MG/5 ML VIAL IM ONE; +ZOFR4TAB PO
== END ==
LOC: HOBG 09:01
PROVIDERS: ATTEND Obstetrics & Gynecology
DX: Z36.2 Encounter for other antenatal screening follow-up (principal)
CPT/HCPCS: 96372; J0702

== ENCOUNTER 2017-10-18 14:29 | Emergency (ER) | payer OTHER ==
[~2017-10-18 14:29] MED LIST changes: -BETAMETHASONE SOD PHOS/ACETATE SUSP 30 MG/5 ML VIAL IM ONE; -ZOFR4TAB PO
[2017-10-18] MEDS ORDERED: LACTATED RINGER'S 1000 ML INJ 1,000 ML IV SCH (15:25)
[2017-10-18] MEDS ORDERED: TERBUTALINE INJ 1 MG/ML AMP SQ PRN (15:30)
--- NOTE | 2017-10-18 15:32 | PD ---
HPI Chief Complaint Contractions Date Seen: October 18, 2017 Time Seen: 15:45 Travel History International Travel<30 Days: No Contact w/Intl Traveler<30Days: No Known Affected Area: No History of Present Illness HPI Patient is 22-year-old at 35 weeks sent from the [place] ER for contractions. [facility]. Heart tones are reactive and she is sd irregularly. The patient was here October 02 of this year for the same problem she was 33 weeks and then was given terbutaline and sent home she was 1 cm dilated 50% effaced at that time and today her cervix is the same Weeks Gestation: 35 Para: 1 : 3 Miscarriage: 1 History Obstetric History Obstetric History 1 early loss 1 vaginal delivery at term Social History Alcohol Use: No Tobacco Use: No Substance Abuse: No Allergies-Medications (Allergen,Severity, Reaction): Coded Allergies: No Known Allergies (Unverified Adverse Reaction, Unknown, 10/18/17) Home Meds Active Scripts Multi-Vit/Iron-Folic Ptqh-F95-Vop C (Ferralet) 90-1-0.012-120 mg Tab, 1 CAPLET PO DAILY for 30 Days, #30 CAPLET 2 Refills Prov:Andree Ramesh CNM [facility] 06/03/17 Review of Systems General / Constitutional: No: Fever, Weight Gain, Chills, Other Eyes: No: Diploplia, Blurred Vision, Visual changes, Pain, Photophobia HENT: No: Headaches, Vertigo, Lightheadedness Cardiovascular: No: Irregular Rhythm, Chest Pain or Discomfort, Palpitations, Tachycardia, Syncope, Varicosities, Edema, Cyanosis Respiratory: No: Cough, Short of Breath, Other Gastrointestinal: Abdominal Pain Genitourinary: No: Decreased Urinary Output, Oliguria Musculoskeletal: No: Limited ROM, Weakness, Cramping, Edema, Pain Skin: No Rash, No Itching, No Dryness, No Lumps, No Change in Pigmentation, No Change in Nails, No Alopecia, No Lesions Neurologic: No: Weakness, Dizziness, Syncope, Focal Abnormalities, Coordination Problem, Headache, Slurred Speech, Seizures Psychiatric: No: Depression, Suicidal Ideations, Homicidal Ideation Endocrine: No: Heat Intolerance, Cold Intolerance, Polydipsia, Polyuria, Other Physical Exam Narrative GENERAL: Well-nourished, well-developed patient. SKIN: Warm and dry. HEAD: Normocephalic and atraumatic. EYES: No scleral icterus. No injection or drainage. ENT: No nasal drainage noted. Mucous membranes pink. Airway patent. NECK: Supple, trachea midline. No JVD. CARDIOVASCULAR: Regular rate and rhythm without murmurs, gallops, or rubs. RESPIRATORY: Breath sounds equal bilaterally. No accessory muscle use. BREASTS: Bilateral exam showed no masses , no retractions, no nipple discharge. ABDOMEN/GI: Abdomen soft, non-tender, bowel sounds present, no rebound, no guarding Gravid to [35-] weeks size Fundal Height: [34-] GENITOURINARY: External Genitalia: intact and normal in appearance BUS glands: [-] Cervix: [-post] Dilatation: [1-] Effacement: [50-] Station: [-3] Presentation: [vtx-] Membranes: [intact ] Uterine Contractions: [irreg-] FHT's: Category: [1-] Baseline: [133-] Reactive: [-R] Variability: [-mod] Decels: [none-] EXTREMITIES: No cyanosis or edema. BACK: Nontender without obvious deformity. No CVA tenderness. NEUROLOGICAL: Awake and alert. Motor and sensory grossly within normal limits. Five out of 5 muscle strength in all muscle groups. Normal speech. Data Data Orders Orders Vital Signs (Adult) .ON ADMISSION (10/18/17 15:25) ^ Labor Status (10/18/17 15:25) ^ Non Stress Test (10/18/17 15:25) Lactated Ringer's 1000 Ml Inj (Lr 1000 M (10/18/17 15:25) Terbutaline Inj (Brethine Inj) (10/18/17 15:30) Fentanyl Inj (Fentanyl Inj) (10/18/17 15:30) MDM Interpretation(s) Patient is 22-year-old at 35 weeks with contractions sent from the deltoid to ER. Patient is having a few contractions but she is not having a lot of discomfort from them and her cervix is unchanged from 2 weeks ago. NST is reactive Plan Plan IV fluid to hydrate, terbutaline to medicate subcu and the fentanyl for sedation and pain relief. It was explained to the patient this is the most we would do for contractions at 35 weeks and that if it worked that was good and if it did not work should still be sent home and await labor progression if it is going to do that Diagnosis Diagnosis: Primary Impression: Premature uterine contractions causing threatened premature labor in third trimester Additional Impression: 35 weeks gestation of Disposition: 01 DISCHARGE HOME Condition: Stable Armando Cho II, MD October 18, 2017 15:32
== END 2017-10-18 17:11 | disposition home or self-care (01) ==
LOC: HOBED 14:29
DX: O47.03 False labor before 37 completed weeks of gestation, third trimester (principal); Z3A.35 35 weeks gestation of pregnancy
CPT/HCPCS: 59025; 96361; 96372; 96374; 99284; J3010; J3105; J7120; 99283

== ENCOUNTER 2017-10-21 13:23 | Observation (INO) | payer OTHER ==
[2017-10-21] MEDS ORDERED: DEXTROSE 5%-LACTATED RING INJ 1,000 ML IV ONE (15:00)
[2017-10-21] MEDS ORDERED: ONDANSETRON ODT 4 MG TAB PO ONE (15:00)
--- NOTE | 2017-10-21 15:03 | PD ---
HPI Chief Complaint Nausea, vomiting, diarrhea Date Seen: October 21, 2017 Travel History International Travel<30 Days: No Contact w/Intl Traveler<30Days: No Known Affected Area: No History of Present Illness HPI The patient is a pleasant 22 year old at 35/4 who presents to OB triage for evaluation of nausea, vomiting, diarrhea, and abdominal pain. She states her symptoms began last night around 23: 30. She reports multiple episodes of nonbloody diarrhea since that time. She also reports nausea and several episodes of nonbloody and nonbilious emesis throughout the day. She endorses decreased PO intake and reports her last meal was yesterday at lunchtime. She also reports a fever reportedly of 103F taken orally last night. She endorses subjective fevers and chills throughout today. She otherwise denies any leakage of fluid. Endorses irregular contractions occurring about every 15 minutes or so. Endorses positive movements. She reports diffuse abdominal pain crampy in nature, nonradiating. Para: 1 : 3 History Past Medical History Narrative Medical Reportedly healthy Obstetric History Obstetric History 1 early loss 1 vaginal delivery at term Past Surgical History Surgical History: No Previous Surgery Family History Family History: Negative Social History Alcohol Use: No Tobacco Use: No Substance Abuse: No Allergies-Medications (Allergen,Severity, Reaction): Coded Allergies: No Known Allergies (Unverified Adverse Reaction, Unknown, 10/18/17) Home Meds Active Scripts Multi-Vit/Iron-Folic [id number]-Z80-Jjg C (Ferralet) 90-1-0.012-120 mg Tab, 1 CAPLET PO DAILY for 30 Days, #30 CAPLET 2 Refills Prov:Andree Ramesh CNM [facility] 06/03/17 Review of Systems Except as stated in HPI: all other systems reviewed are Neg Physical Exam Narrative GENERAL: Well-nourished, well-developed patient. SKIN: Warm and dry. HEAD: Normocephalic and atraumatic. EYES: No scleral icterus. No injection or drainage. ENT: No nasal drainage noted. Mucous membranes pink. Airway patent. NECK: Supple, trachea midline. No JVD. CARDIOVASCULAR: Regular rate and rhythm without murmurs, gallops, or rubs. RESPIRATORY: Breath sounds equal bilaterally. No accessory muscle use. ABDOMEN/GI: Abdomen soft, non-tender, bowel sounds present, no rebound, no guarding Gravid to 35 weeks size GENITOURINARY: External Genitalia: intact and normal in appearance Cervix: [-] Dilatation: [-] Effacement: [-] Station: [-] Presentation: [-] Membranes: [-] Uterine Contractions: Irregular FHT's: Category: I Baseline: 140s Reactive: + Variability: Moderate Decels: none noted EXTREMITIES: No cyanosis or edema. BACK: Nontender without obvious deformity. No CVA tenderness. NEUROLOGICAL: Awake and alert. Motor and sensory grossly within normal limits. Normal speech. Data Data Vital Signs Reviewed: Yes Orders Orders Vital Signs (Adult) .ON ADMISSION (10/21/17 14:58) ^ Labor Status (10/21/17 14:58) Urinalysis - C+S If Indicated (10/21/17 14:58) ^ Non Stress Test (10/21/17 14:58) Diet Liquid (10/21/17 Lunch) ^ Hydration (10/21/17 14:58) Comprehensive Metabolic Panel (10/21/17 14:58) Complete Blood Count With Diff (10/21/17 14:58) Magnesium (Mg) (10/21/17 14:58) D5-Lr (Bolus) Inj (10/21/17 15:00) Ondansetron Odt (Zofran Odt) (10/21/17 15:00) MDM Medical Record Reviewed: Yes Plan 22 year old at 35/4 weeks gestation evaluated due to nausea, vomiting, abdominal pain, diarrhea. 1. Nausea and vomiting also causing hypokalemia - Check labs to include cbc, cmp, mg, UA - Patient given 1L bolus D5-NS - Zofran 4 mg ODT x1 - Patient unable to tolerate clear liquids and with recurrence of vomiting. Plan to admit patient to observation. - Keep patient NPO for bowel rest - Zofran 4 mg IV q4h scheduled with additional 4 mg IV if needed - LR at 125 cc/hr - Repleted K with KCl 60 meQ and Mg IV - Repeat BMP tomorrow 2. Diarrhea - Imodium 4 mg po for diarrhea - Continue imodium prn diarrhea - No leukocytosis 3. IUP - Category I tracing - FHTs q shift - Irregular contractions - No report of leakage of fluid dw Dr. Terell Johnson MD R2 October 21, 2017 15:03
[2017-10-21] MEDS ORDERED: LOPERAMIDE HCL 2 MG CAP PO ONE (15:15)
[2017-10-21 16:25] LABS: AUTOMATED NEUTROPHIL # 8.4 TH/MM3 (1.8-7.7); BASOPHIL % 0.1 % (0.0-2.0); EOSINOPHIL % 0.2 % (0.0-4.0); HEMATOCRIT 31.5 % (35.0-46.0); HEMOGLOBIN 10.6 GM/DL (11.6-15.3); LYMPHOCYTE # 1.7 TH/MM3 (1.0-4.8); MEAN CELL VOLUME 85.6 FL (80.0-100.0); MEAN CORPUSCULAR HEMOGLOBIN 28.8 PG (27.0-34.0); MEAN CORPUSCULAR HGB CONC 33.7 % (32.0-36.0); MEAN PLATELET VOLUME 8.5 FL (7.0-11.0); MONO % 5.2 % (0.0-8.0); MONOCYTE # 0.6 TH/MM3 (0-0.9); NEUT % 78.5 % (16.0-70.0); PLATELET COUNT 271 TH/MM3 (150-450); RED BLOOD COUNT 3.68 MIL/MM3 (4.00-5.30); RED CELL DISTRIBUTION WIDTH 14.5 % (11.6-17.2); WHITE BLOOD COUNT 10.7 TH/MM3 (4.0-11.0)
[2017-10-21 16:28] LABS: BACTERIA, URINE RARE /hpf; BILIRUBIN, URINE NEG (NEG); BLOOD, URINE NEG (NEG); GLUCOSE,URINE NEG (NEG); KETONE, URINE NEG (NEG); MUCUS URINE MANY /lpf (OCC); NITRITE,URINE NEG (NEG); PH, URINE 5.5 (5.0-8.5); SQUAMOUS EPITHELIAL CELL URINE 5 /hpf (0-5); URINE COLOR YELLOW (YELLW/STRAW); URINE LEUKOCYTE ESTERASE MOD (NEG)
[2017-10-21 16:52] LABS: ALBUMIN 2.6 GM/DL (3.4-5.0); ALT (GPT) 16 U/L (10-53); AST (GOT) 10 U/L (15-37); BLOOD UREA NITROGEN 7 MG/DL (7-18); CALCIUM 8.3 MG/DL (8.5-10.1); CHLORIDE 106 MEQ/L (98-107); CREATININE 0.39 MG/DL (0.50-1.00); GLOMERULAR FILTRATION RATE 202 ML/MIN (>89); GLUCOSE,RANDOM 97 MG/DL (74-106); MAGNESIUM 1.7 MG/DL (1.5-2.5); SODIUM (NA) 138 MEQ/L (136-145)
[2017-10-21 16:54] LABS: ALKALINE PHOSPHATASE 101 U/L (45-117); TOTAL BILIRUBIN ADULT 0.2 MG/DL (0.2-1.0); TOTAL PROTEIN 6.3 GM/DL (6.4-8.2)
[2017-10-21] MEDS ORDERED: ONDANSETRON HCL 4 MG/2 ML VIAL IV PUSH PRN (17:00)
[2017-10-21] MEDS ORDERED: ONDANSETRON HCL 4 MG/2 ML VIAL IV PUSH SCH (17:00)
[2017-10-21] MEDS ORDERED: SODIUM CHLORIDE 0.9% FLUSH 10 ML FLUSH IV FLUSH PRN (17:00)
[2017-10-21] MEDS ORDERED: ACETAMINOPHEN 325 MG TAB PO PRN (17:00)
--- NOTE | 2017-10-21 17:13 | HHI.HP ---
History & Physical H&P HPI HPI Chief Complaint Nausea, vomiting, diarrhea Date Seen: October 21, 2017 Travel History International Travel<30 Days: No Contact w/Intl Traveler<30Days: No Known Affected Area: No History of Present Illness HPI The patient is a pleasant 22 year old at 35/4 who presents to OB triage for evaluation of nausea, vomiting, diarrhea, and abdominal pain. She states her symptoms began last night around 23: 30. She reports multiple episodes of nonbloody diarrhea since that time. She also reports nausea and several episodes of nonbloody and nonbilious emesis throughout the day. She endorses decreased PO intake and reports her last meal was yesterday at lunchtime. She also reports a fever reportedly of 103F taken orally last night. She endorses subjective fevers and chills throughout today. She otherwise denies any leakage of fluid. Endorses irregular contractions occurring about every 15 minutes or so. Endorses positive movements. She reports diffuse abdominal pain crampy in nature, nonradiating. Para: 1 : 3 History (Limited) History Past Medical History Narrative Medical Reportedly healthy Obstetric History Obstetric History 1 early loss 1 vaginal delivery at term Past Surgical History Surgical History: No Previous Surgery Family History Family History: Negative Social History Alcohol Use: No Tobacco Use: No Substance Abuse: No Allergies-Medications Allergies-Medications (Allergen,Severity, Reaction): Coded Allergies: No Known Allergies (Unverified Adverse Reaction, Unknown, 10/18/17) Home Meds Active Scripts Multi-Vit/Iron-Folic Hynb-R89-Sdc C (Ferralet) 90-1-0.012-120 mg Tab, 1 CAPLET PO DAILY for 30 Days, #30 CAPLET 2 Refills Prov:Andree Ramesh CNM [facility] 06/03/17 ROS Review of Systems Except as stated in HPI: all other systems reviewed are Neg Physical Exam Physical Exam Narrative GENERAL: Well-nourished, well-developed patient. SKIN: Warm and dry. HEAD: Normocephalic and atraumatic. EYES: No scleral icterus. No injection or drainage. ENT: No nasal drainage noted. Mucous membranes pink. Airway patent. NECK: Supple, trachea midline. No JVD. CARDIOVASCULAR: Regular rate and rhythm without murmurs, gallops, or rubs. RESPIRATORY: Breath sounds equal bilaterally. No accessory muscle use. ABDOMEN/GI: Abdomen soft, non-tender, bowel sounds present, no rebound, no guarding Gravid to 35 weeks size GENITOURINARY: External Genitalia: intact and normal in appearance Cervix: [-] Dilatation: [-] Effacement: [-] Station: [-] Presentation: [-] Membranes: [-] Uterine Contractions: Irregular FHT's: Category: I Baseline: 140s Reactive: + Variability: Moderate Decels: none noted EXTREMITIES: No cyanosis or edema. BACK: Nontender without obvious deformity. No CVA tenderness. NEUROLOGICAL: Awake and alert. Motor and sensory grossly within normal limits. Normal speech. Data Data Data Vital Signs Reviewed: Yes Orders Orders Vital Signs (Adult) .ON ADMISSION (10/21/17 14:58) ^ Labor Status (10/21/17 14:58) Urinalysis - C+S If Indicated (10/21/17 14:58) ^ Non Stress Test (10/21/17 14:58) Diet Liquid (10/21/17 Lunch) ^ Hydration (10/21/17 14:58) Comprehensive Metabolic Panel (10/21/17 14:58) Complete Blood Count With Diff (10/21/17 14:58) Magnesium (Mg) (10/21/17 14:58) D5-Lr (Bolus) Inj (10/21/17 15:00) Ondansetron Odt (Zofran Odt) (10/21/17 15:00) MDM MDM Medical Record Reviewed: Yes Plan 22 year old at 35/4 weeks gestation evaluated due to nausea, vomiting, abdominal pain, diarrhea. 1. Nausea and vomiting also causing hypokalemia - Check labs to include cbc, cmp, mg, UA - Patient given 1L bolus D5-NS - Zofran 4 mg ODT x1 - Patient unable to tolerate clear liquids and with recurrence of vomiting. Plan to admit patient to observation. - Keep patient NPO for bowel rest - Zofran 4 mg IV q4h scheduled with additional 4 mg IV if needed - LR at 125 cc/hr - Repleted K with KCl 60 meQ and Mg IV - Repeat BMP tomorrow 2. Diarrhea - Imodium 4 mg po for diarrhea - Continue imodium prn diarrhea - No leukocytosis 3. IUP - Category I tracing - FHTs q shift - Irregular contractions - No report of leakage of fluid dw Terell Castellon MD R2 October 21, 2017 17:13
[2017-10-21] MEDS ORDERED: MAGNESIUM SULFATE 1 GM PREMIX 100 ML IV ONE (17:15)
[2017-10-21] MEDS ORDERED: LOPERAMIDE HCL SOLN 2 MG/10 ML UDC PO PRN (17:30)
[2017-10-21] MEDS: LACTATED RINGER'S 1000 ML INJ 1,000 ML IV SCH (18:13)
[2017-10-21 19:35] VITALS: BP 125/49; PULSE 93
[2017-10-21 19:39] VITALS: RESP 18; TEMP 98.2
[2017-10-21] MEDS: POTASSIUM CHLOR 20 MEQ PREMIX 100 ML IV SCH ×3 (19:52→23:28)
[2017-10-21] MEDS ORDERED: SODIUM CHLORIDE 0.9% FLUSH 10 ML FLUSH IV FLUSH SCH (21:00)
[2017-10-21] MEDS ORDERED: ZOLPIDEM TARTRATE 5 MG TAB PO PRN (21:00)
[2017-10-21 23:11] VITALS: BP 117/59; PULSE 97; RESP 18; TEMP 98.5
[2017-10-22] MEDS: LACTATED RINGER'S 1000 ML INJ 1,000 ML IV SCH (00:19)
[2017-10-22 03:32] VITALS: BP 116/56; PULSE 99
[2017-10-22 03:33] VITALS: RESP 18; TEMP 98.1
[2017-10-22 06:25] LABS: BICARBONATE 21.9 MEQ/L (21.0-32.0); CALCIUM 8.3 MG/DL (8.5-10.1); CREATININE 0.44 MG/DL (0.50-1.00)
[2017-10-22] MEDS ORDERED: MULTIVIT/MIN/PREN/FOL AC/IRON PRENATAL TAB PO SCH (09:00)
[2017-10-22] MEDS ORDERED: ZOFR4TAB PO (10:13)
--- NOTE | 2017-10-22 10:14 | HHI.DCPOC ---
Discharge Care Plan Diagnosis: (1) Nausea and vomiting during Report Symptoms to Your Doctor -Temperature above 100.5 degrees -Redness, of incision or excessive or foul smelling drainage -Unusual pain or calf pain -Increased vaginal bleeding -Painful or difficulty urinating -Feelings of extreme sadness or anxiety after 2 weeks Goals to Promote Your Health * To prevent worsening of your condition and complications * To maintain your health at the optimal level Directions to Meet Your Goals Take your medications as prescribed Follow your dietary instruction Follow activity as directed Ensure plenty of rest for recovery Drink fluids for hydration Keep your appointments as scheduled Take your immunizations and boosters as scheduled If your symptoms worsen call your PCP, if no PCP go to Urgent Care Center or Emergency Room Smoking is Dangerous to Your Health. Avoid second hand smoke Call the 24-hour crisis hotline for domestic abuse at Nette Garland MD R1 October 22, 2017 10:14
--- NOTE | 2017-10-22 10:19 | PD.OB.ANTE ---
Subjective Interval History Patient doing well this AM No complaints Denies N/V, diarrhea, CP, and SOB Patient reports tolerating food Antepartum ROS: Denies: New complaints, Loss of fluid, Vaginal bleeding, movement normal, Contractions, Other Objective Vital Signs Vital Signs Date Time Temp Pulse Resp B/P (MAP) Pulse Ox O2 Delivery O2 Flow Rate FiO2 10/22/17 03:33 98.1 18 10/22/17 03:32 99 116/56 (76) 10/21/17 23:11 18 10/21/17 23:11 98.5 97 117/59 (78) 10/21/17 19:48 18 10/21/17 19:39 98.2 10/21/17 19:39 18 10/21/17 19:35 93 125/49 (74) Lab & Micro Results Test 10/21/17 14:56 10/22/17 04:39 White Blood Count 10.7 TH/MM3 Red Blood Count 3.68 MIL/MM3 Hemoglobin 10.6 GM/DL Hematocrit 31.5 % Mean Corpuscular Volume 85.6 FL Mean Corpuscular Hemoglobin 28.8 PG Mean Corpuscular Hemoglobin Concent 33.7 % Red Cell Distribution Width 14.5 % Platelet Count 271 TH/MM3 Mean Platelet Volume 8.5 FL Neutrophils (%) (Auto) 78.5 % Lymphocytes (%) (Auto) 16.0 % Monocytes (%) (Auto) 5.2 % Eosinophils (%) (Auto) 0.2 % Basophils (%) (Auto) 0.1 % Neutrophils # (Auto) 8.4 TH/MM3 Lymphocytes # (Auto) 1.7 TH/MM3 Monocytes # (Auto) 0.6 TH/MM3 Eosinophils # (Auto) 0.0 TH/MM3 Basophils # (Auto) 0.0 TH/MM3 CBC Comment DIFF FINAL Differential Comment Urine Color YELLOW Urine Turbidity HAZY Urine pH 5.5 Urine Specific [place] 1.023 Urine Protein TRACE mg/dL Urine Glucose (UA) NEG mg/dL Urine Ketones NEG mg/dL Urine Occult Blood NEG Urine Nitrite NEG Urine Bilirubin NEG Urine Urobilinogen LESS THAN 2.0 MG/DL Urine Leukocyte Esterase MOD Urine RBC LESS THAN 1 /hpf Urine WBC 1 /hpf Urine Squamous Epithelial Cells 5 /hpf Urine Bacteria RARE /hpf Urine Mucus MANY /lpf Microscopic Urinalysis Comment CULT NOT INDICATED Blood Urea Nitrogen 7 MG/DL 5 MG/DL Creatinine 0.39 MG/DL 0.44 MG/DL Random Glucose 97 MG/DL 82 MG/DL Total Protein 6.3 GM/DL Albumin 2.6 GM/DL Calcium Level 8.3 MG/DL 8.3 MG/DL Magnesium Level 1.7 MG/DL Alkaline Phosphatase 101 U/L Aspartate Amino Transf (AST/SGOT) 10 U/L Alanine Aminotransferase (ALT/SGPT) 16 U/L Total Bilirubin 0.2 MG/DL Sodium Level 138 MEQ/L 140 MEQ/L Potassium Level 3.3 MEQ/L 3.9 MEQ/L Chloride Level 106 MEQ/L 106 MEQ/L Carbon Dioxide Level 23.0 MEQ/L 21.9 MEQ/L Anion Gap 9 MEQ/L 12 MEQ/L Estimat Glomerular Filtration Rate 202 ML/MIN 176 ML/MIN Physical Exam GENERAL: Well-nourished, well-developed patient. CARDIOVASCULAR: Regular rate and rhythm without murmurs, gallops, or rubs. RESPIRATORY: Breath sounds equal bilaterally. No accessory muscle use. ABDOMEN/GI: Abdomen soft, non-tender. EXTREMITIES: No cyanosis or edema, non-tender, without signs of DVT. Assessment and Plan Assessment and Plan 22 year old at 35/4 weeks gestation admitted due to nausea, vomiting, abdominal pain, diarrhea. 1. Nausea and vomiting also causing hypokalemia Improved BMP, K+ increase to 3.9 today from 3.3 Zofran 4mg PO PRN 2. Diarrhea Improved - Imodium 4 mg po for diarrhea - Continue imodium prn diarrhea 3. IUP - Category I tracing, reassuring Discharged home with Zofran, follow-up with OB provider Nette Núñez Dr., MD R1 October 22, 2017 10:19
== END 2017-10-22 10:22 | disposition home or self-care (01) ==
LOC: HOBED 13:23 → H2EA 17:32
PROVIDERS: ADMIT Obstetrics & Gynecology; ATTEND Obstetrics & Gynecology
DX: O21.9 Vomiting of pregnancy, unspecified (principal); O99.283 Endocrine, nutritional and metabolic diseases complicating pregnancy, third trimester; E87.6 Hypokalemia; O99.89 Other specified diseases and conditions complicating pregnancy, childbirth and the puerperium; R19.7 Diarrhea, unspecified; R50.9 Fever, unspecified; R10.9 Unspecified abdominal pain; Z3A.35 35 weeks gestation of pregnancy
CPT/HCPCS: 59025; 80048; 80053; 81001; 83735; 85025; 96361; 96365; 96366; 96375; 99285; G0378; J2405; J3475; J3480; J7120; J7121

== ENCOUNTER 2017-11-13 15:31 | Emergency (ER) | payer OTHER ==
[~2017-11-13 15:31] MED LIST changes: +ZOFR4TAB PO
--- NOTE | 2017-11-13 16:27 | PD ---
HPI Chief Complaint Contractions Date Seen: Nov 13, 2017 (Terell Cr MD R2) Travel History International Travel<30 Days: No Contact w/Intl Traveler<30Days: No Known Affected Area: No (Terell Cr MD) History of Present Illness HPI The patient is a pleasant 22 year old at 38/6 weeks gestation presents to OB triage due to contractions beginning this morning. The patient states she does not believe her contractions to be intensifying. Unsure if they are becoming more regular. The patient reports she had a cervical check in office yesterday and was told she was 2 cm dilated. The patient also reports a mild amount of spotting. Denies passage of blood clots or continued bleeding. Denies urinary complaints. Endorses pelvic pressure. Denies pain. She reports good movements. Denies leakage or gush of fluid. She otherwise does not have any complaints or concerns. Patient is GBS negative done on 10/15. Para: 1 : 3 (Terell Cr MD) History Past Medical History Medical History: Denies Significant Hx (Terell Cr MD R2) Obstetric History Obstetric History 1 early loss 1 vaginal delivery at term (Terell Cr MD R2) Past Surgical History Surgical History: No Previous Surgery (Terell Cr MD) Family History Family History: Negative (Terell Cr MD) Social History Alcohol Use: No Tobacco Use: No Substance Abuse: No (Terell Cr MD) Allergies-Medications (Allergen,Severity, Reaction): Coded Allergies: No Known Allergies (Verified Adverse Reaction, Unknown, 11/13/17) Home Meds Discontinued Scripts Ondansetron (Zofran) 4 Mg Tab, 4 MG PO Q6HR Y for NAUSEA OR VOMITING, #30 TAB 0 Refills Prov:Nette Garland MD R1 10/22/17 Multi-Vit/Iron-Folic [id number] C (Ferralet) 90-1-0.012-120 mg Tab, 1 CAPLET PO DAILY for 30 Days, #30 CAPLET 2 Refills Prov:Andree Ramesh CNM HISTOLOGY AIDE 06/03/17 Review of Systems Except as stated in HPI: all other systems reviewed are Neg (Terell Cr MD R2) Physical Exam Narrative GENERAL: Well-nourished, well-developed patient. SKIN: Warm and dry. HEAD: Normocephalic and atraumatic. EYES: No scleral icterus. No injection or drainage. ENT: No nasal drainage noted. Mucous membranes pink. Airway patent. NECK: Supple, trachea midline. No JVD. CARDIOVASCULAR: Regular rate and rhythm without murmurs, gallops, or rubs. RESPIRATORY: Breath sounds equal bilaterally. No accessory muscle use. ABDOMEN/GI: Abdomen soft, non-tender, bowel sounds present, no rebound, no guarding Gravid to 39 weeks size GENITOURINARY: External Genitalia: intact and normal in appearance Cervix:posterior Dilatation: 3cm Effacement: 50% Station: -3 Presentation: [-] Membranes: [-] Uterine Contractions: q2-5 minutes on tocometer FHT's: Category: I Baseline: 130s Reactive: +accels Variability: moderate Decels: none noted EXTREMITIES: No cyanosis or edema. BACK: Nontender without obvious deformity. No CVA tenderness. NEUROLOGICAL: Awake and alert. Motor and sensory grossly within normal limits. Normal speech. (Terell Cr MD R2) Data Data Vital Signs Reviewed: Yes Group B Strep: Negative (Terell Cr MD R2) MDM Medical Record Reviewed: Yes Plan 22 year old at 38/6 weeks gestation evaluated due to contractions. 1. IUP - Category I tracing - Contractions q2-5 minutes on tocometer - Cervix: 3/50/-3, posterior - Will send patient home from ED, labor precautions discussed with patient and instructed on si/sxs that would warrant a return visit for reevaluation sdw Dr. Christianson (Terell Cr MD R2) Attending Attestation Patient seen and evaluated with resident under direct supervision, agree with assessment and plan. (Harry Christianson MD) Diagnosis Diagnosis: Primary Impression: 38 weeks gestation of Disposition: DISCHARGE HOME Condition: Stable Scripts No Active Prescriptions or Reported Meds Patient Instructions: General Instructions, Early Labor Signs (ED) Terell Cr MD R2 Nov 13, 2017 16:27 Harry Christianson MD Nov 15, 2017 16:35
== END 2017-11-13 16:49 | disposition home or self-care (01) ==
LOC: HOBED 15:31
DX: O47.1 False labor at or after 37 completed weeks of gestation (principal); Z3A.38 38 weeks gestation of pregnancy
CPT/HCPCS: 59025

== ENCOUNTER 2017-11-13 23:52 | Inpatient (IN) | payer OTHER ==
[~2017-11-13] VITALS: Ht 154.9 cm; Wt 83.0 kg
--- NOTE | 2017-11-14 00:26 | PD ---
HPI Chief Complaint Cervical dilation, contractions Date Seen: Nov 14, 2017 (Terell Cr MD R2) Travel History International Travel<30 Days: No Contact w/Intl Traveler<30Days: No Known Affected Area: No (Terell Cr MD R2) History of Present Illness HPI The patient is a pleasant 22 year old at 39 weeks gestation as of 11/14 being evaluated due to persistent contractions. She reports her contractions have become more intense and have been occurring about every 3-5 minutes. She was seen in the ED in [place] and on cervical examination there was thought to be 5 cm dilated. She presented here by private transportation. She denies any leakage or gush of fluid. Endorses positive movements. Endorses a mild amount of spotting. Denies any abdominal or pelvic pain. Endorses some low back pain as well as pelvic pressure. She is GBS negative. Para: 1 : 3 (Terell Cr MD R2) History Past Medical History Medical History: Denies Significant Hx (Terell Cr MD R2) Obstetric History Obstetric History 1 early loss 1 vaginal delivery at term (Terell Cr MD R2) Past Surgical History Surgical History: No Previous Surgery (Terell Cr MD R2) Family History Family History: Negative (Terell Cr MD) Social History Alcohol Use: No Tobacco Use: No Substance Abuse: No (Terell Cr MD R2) Allergies-Medications (Allergen,Severity, Reaction): Coded Allergies: No Known Allergies (Verified Adverse Reaction, Unknown, 11/13/17) Home Meds Discontinued Scripts Ondansetron (Zofran) 4 Mg Tab, 4 MG PO Q6HR Y for NAUSEA OR VOMITING, #30 TAB 0 Refills Prov:Nette Garland MD R1 10/22/17 Multi-Vit/Iron-Folic [id number] C (Ferralet) 90-1-0.012-120 mg Tab, 1 CAPLET PO DAILY for 30 Days, #30 CAPLET 2 Refills Prov:Andree Ramesh CNM 06/03/17 Review of Systems Except as stated in HPI: all other systems reviewed are Neg (Terell Cr MD R2) Physical Exam Narrative GENERAL: Well-nourished, well-developed patient. SKIN: Warm and dry. HEAD: Normocephalic and atraumatic. EYES: No scleral icterus. No injection or drainage. ENT: No nasal drainage noted. Mucous membranes pink. Airway patent. NECK: Supple, trachea midline. No JVD. CARDIOVASCULAR: Regular rate and rhythm without murmurs, gallops, or rubs. RESPIRATORY: Breath sounds equal bilaterally. No accessory muscle use. BREASTS: Bilateral exam showed no masses , no retractions, no nipple discharge. ABDOMEN/GI: Abdomen soft, non-tender, bowel sounds present, no rebound, no guarding Gravid to 39 weeks size GENITOURINARY (performed by Dr. Christianson with female chief radiation therapist present in examination room): External Genitalia: intact and normal in appearance Cervix: Midposition Dilatation: 3cm Effacement: 60% Station: -2 Presentation: [-] Membranes: [-] Uterine Contractions: [-] FHT's: Category: I Baseline: 130s Reactive: +accels Variability: moderate Decels: absent EXTREMITIES: No cyanosis or edema. BACK: Nontender without obvious deformity. No CVA tenderness. NEUROLOGICAL: Awake and alert. Motor and sensory grossly within normal limits. Normal speech. (Terell Cr MD R2) Data Data Vital Signs Reviewed: Yes Group B Strep: Negative (Terell Cr MD R2) [facility] Medical Record Reviewed: Yes Plan 22 year old at 39 weeks gestation as of 11/14 being evaluated due to persistent contractions and thought to be 5cm dilated at [place] ED. Patient to be admitted to L&D. - Category I tracing - Cervix: 3/60/-2, on recheck one hour later patient further effaced to 80% - Contractions q1-5 minutes - GBS negative - Patient desiring epidural - Start Pitocin at 1-1-30 - Anticipate sdw Dr. Christianson (Terell Cr MD R2) Attending Attestation Patient seen and evaluated with resident under direct supervision, agree with assessment and plan. (Harry Christianson MD) Scripts No Active Prescriptions or Reported Meds Terell Cr MD R2 Nov 14, 2017 00:26 Harry Christianson MD Nov 14, 2017 09:20
[2017-11-14] MEDS ORDERED: LACTATED RINGER'S 1000 ML INJ 1,000 ML IV PRN (01:06)
--- NOTE | 2017-11-14 01:11 | HHI.HP ---
History & Physical H&P HPI HPI Chief Complaint Cervical dilation, contractions Date Seen: Nov 14, 2017 Travel History International Travel<30 Days: No Contact w/Intl Traveler<30Days: No Known Affected Area: No History of Present Illness HPI The patient is a pleasant 22 year old at 39 weeks gestation as of 11/14 being evaluated due to persistent contractions. She reports her contractions have become more intense and have been occurring about every 3-5 minutes. She was seen in the ED in [place] and on cervical examination there was thought to be 5 cm dilated. She presented here by private transportation. She denies any leakage or gush of fluid. Endorses positive movements. Endorses a mild amount of spotting. Denies any abdominal or pelvic pain. Endorses some low back pain as well as pelvic pressure. She is GBS negative. Para: 1 : 3 History (Limited) History Past Medical History Medical History: Denies Significant Hx Obstetric History Obstetric History 1 early loss 1 vaginal delivery at term Past Surgical History Surgical History: No Previous Surgery Family History Family History: Negative Social History Alcohol Use: No Tobacco Use: No Substance Abuse: No Allergies-Medications Allergies-Medications (Allergen,Severity, Reaction): Coded Allergies: No Known Allergies (Verified Adverse Reaction, Unknown, 11/13/17) Home Meds Discontinued Scripts Ondansetron (Zofran) 4 Mg Tab, 4 MG PO Q6HR Y for NAUSEA OR VOMITING, #30 TAB 0 Refills Prov:Nette Garland MD 10/22/17 Multi-Vit/Iron-Folic [id number] C (Ferralet) 90-1-0.012-120 mg Tab, 1 CAPLET PO DAILY for 30 Days, #30 CAPLET 2 Refills Prov:Andree Ramesh CNM 06/03/17 ROS Review of Systems Except as stated in HPI: all other systems reviewed are Neg Physical Exam Physical Exam Narrative GENERAL: Well-nourished, well-developed patient. SKIN: Warm and dry. HEAD: Normocephalic and atraumatic. EYES: No scleral icterus. No injection or drainage. ENT: No nasal drainage noted. Mucous membranes pink. Airway patent. NECK: Supple, trachea midline. No JVD. CARDIOVASCULAR: Regular rate and rhythm without murmurs, gallops, or rubs. RESPIRATORY: Breath sounds equal bilaterally. No accessory muscle use. BREASTS: Bilateral exam showed no masses , no retractions, no nipple discharge. ABDOMEN/GI: Abdomen soft, non-tender, bowel sounds present, no rebound, no guarding Gravid to 39 weeks size GENITOURINARY (performed by Dr. Christianson with female lacrosse player present in examination room): External Genitalia: intact and normal in appearance Cervix: Midposition Dilatation: 3cm Effacement: 60% Station: -2 Presentation: [-] Membranes: [-] Uterine Contractions: [-] FHT's: Category: I Baseline: 130s Reactive: +accels Variability: moderate Decels: absent EXTREMITIES: No cyanosis or edema. BACK: Nontender without obvious deformity. No CVA tenderness. NEUROLOGICAL: Awake and alert. Motor and sensory grossly within normal limits. Normal speech. Data Data Data Vital Signs Reviewed: Yes Group B Strep: Negative MDM MDM Medical Record Reviewed: Yes Plan 22 year old at 39 weeks gestation as of 11/14 being evaluated due to persistent contractions and thought to be 5cm dilated at [place] ED. Patient to be admitted to L&D. - Category I tracing - Cervix: 3/60/-2, on recheck one hour later patient further effaced to 80% - Contractions q1-5 minutes - GBS negative - Patient desiring epidural - Start Pitocin at 1--30 - Anticipate sdw Dr. Christianson (Terell Cr MD R2) H&P Patient seen and evaluated with resident under direct supervision, agree with assessment and plan. (Harry Christianson MD) Terell Cr MD R2 Nov 14, 2017 01:11 Harry Christianson MD Nov 14, 2017 09:19
[2017-11-14] MEDS ORDERED: SODIUM CHLORID 0.9% 500 ML INJ 500 ML IV PRN (01:15)
[2017-11-14] MEDS ORDERED: ONDANSETRON ODT 4 MG TAB PO PRN ×2 (01:15→14:30)
[2017-11-14] MEDS ORDERED: OXYTOCIN 30 UNITS-500ML PREMIX 500 ML IV PRN (01:15)
[2017-11-14] MEDS ORDERED: MINERAL OIL 10 ML VIAL TOPICAL PRN (01:15)
[2017-11-14] MEDS ORDERED: CITRIC ACID-SODIUM CITRATE LIQ 30 ML UDC PO SCH (01:15)
[2017-11-14] MEDS ORDERED: LIDOCAINE HCL 1% 50 ML VIAL I-DERMAL PRN (01:15)
[2017-11-14] MEDS ORDERED: OXYTOCIN 30 UNITS-500ML PREMIX 500 ML IV ONE (01:15)
[2017-11-14] MEDS ORDERED: LIDOCAINE HCL 1% 50 ML VIAL INFIL PRN (01:15)
[2017-11-14] MEDS ORDERED: SODIUM CHLOR 0.9% 1000 ML INJ 1,000 ML IV PRN (01:26)
[2017-11-14 02:13] LABS: AUTOMATED NEUTROPHIL # 11.8 TH/MM3 (1.8-7.7); BASOPHIL # 0.1 TH/MM3 (0-0.2); BASOPHIL % 0.4 % (0.0-2.0); EOSINOPHIL % 0.2 % (0.0-4.0); HEMATOCRIT 33.9 % (35.0-46.0); HEMOGLOBIN 11.8 GM/DL (11.6-15.3); LYMPH % 17.1 % (9.0-44.0); LYMPHOCYTE # 2.7 TH/MM3 (1.0-4.8); MEAN CELL VOLUME 82.8 FL (80.0-100.0); MEAN CORPUSCULAR HEMOGLOBIN 28.9 PG (27.0-34.0); MEAN CORPUSCULAR HGB CONC 34.9 % (32.0-36.0); MEAN PLATELET VOLUME 8.7 FL (7.0-11.0); MONO % 6.2 % (0.0-8.0); NEUT % 76.1 % (16.0-70.0); PLATELET COUNT 281 TH/MM3 (150-450); RED CELL DISTRIBUTION WIDTH 14.8 % (11.6-17.2); WHITE BLOOD COUNT 15.5 TH/MM3 (4.0-11.0)
[2017-11-14 02:17] LABS: BACTERIA, URINE RARE /hpf; BILIRUBIN, URINE NEG (NEG); BLOOD, URINE NEG (NEG); GLUCOSE,URINE NEG (NEG); KETONE, URINE TRACE mg/dL (NEG); MUCUS URINE FEW /lpf (OCC); NITRITE,URINE NEG (NEG); PH, URINE 6.5 (5.0-8.5); URINE COLOR LIGHT-YELLOW (YELLW/STRAW); URINE LEUKOCYTE ESTERASE NEG (NEG)
[2017-11-14] MEDS: LACTATED RINGER'S 1000 ML INJ 1,000 ML IV SCH ×2 (03:10→10:01)
[2017-11-14] MEDS ORDERED: ePHEDrine/NS 25 MG/5 ML SYRINGE ONE (08:30)
[2017-11-14] MEDS ORDERED: fentaNYL 2MCG-BUPIV 0.125% INJ 150 ML EPIDURAL ONE (08:30)
[2017-11-14] MEDS ORDERED: LIDOCAINE 1.5%/EPINEPHrine 1:200,000 PF 5 ML AMP ONE (08:40)
--- NOTE | 2017-11-14 08:43 | PD.LABORPN ---
Objective Objective Pelvic Exam: Cervix: midposition Dilatation: 3 Effacement: 80% Station: -2 Presentation: [-] Membranes: intact Uterine Contractions: q3-4 minutes FHT's: Category: I Baseline: 120s Reactive: +accels Variability: moderate Decels: absent (Terell Cr MD R2) Assessment/Plan Assessment and Plan 22 year old at 39 weeks gestation admitted to L&D following noted cervical change in the latent phase of labor. - Category I tracing - Cervix: 3/80/-2 - Contractions q3-4 minutes - GBS negative - Epidural in place - Continue Pitocin at 06-15-29 - Anticipate (Terell Cr MD R2) Assessment and Plan Patient seen and evaluated with resident under direct supervision, agree with assessment and plan. (Harry Christianson MD) Terell Cr MD R2 Nov 14, 2017 08:43 Harry Christianson MD Nov 14, 2017 09:18
--- NOTE | 2017-11-14 09:25 | PD.LABORPN ---
Subjective Subjective The patient is comfortable now status post epidural. Objective Objective Pelvic Exam: Cervix: [-] Dilatation: [4-] Effacement: [90-] Station: [-2-] Presentation: [Vertex-] Membranes: [Artificially ruptured] Uterine Contractions: [-Every 2-4] FHT's: Category: [1-] Baseline: [-] Reactive: [-] Variability: [-] Decels: [-] Gest Age Assessed Date: Nov 14, 2017 Gest Age Assessed Time: 09:24 Pt started active labor?: Yes Active labor start date: Nov 14, 2017 Active labor start time: 09:24 Medical induction of labor?: No Artificial rupture of membrane: Yes Artificial ROM date: Nov 14, 2017 Artifical ROM time: 09:14 Assessment/Plan Assessment and Plan Assessment: 39 week multipara in early active labor Plan: Expect vaginal delivery Harry Christianson MD Nov 14, 2017 09:25
[2017-11-14] MEDS ORDERED: fentaNYL 2MCG-BUPIV 0.125% 150 ML EPIDURAL PRN (10:00)
[2017-11-14] MEDS ORDERED: DO NOT ADMINISTER ANTICOAGULANTS PRN (10:00)
[2017-11-14] MEDS ORDERED: NO SYSTEM NARCOTICS PRN (10:00)
[2017-11-14] MEDS ORDERED: ePHEDrine/NS 25 MG/5 ML SYRINGE IV PUSH PRN (10:00)
[2017-11-14] MEDS ORDERED: LIDOCAINE HCL 1% PF 30 ML VIAL ONE (14:00)
--- NOTE | 2017-11-14 14:28 | PD.OB.DELI ---
Gest age assessed date: Nov 14, 2017 Gest age assessed time: 09:24 Pt started active labor?: Yes Active labor start date: Nov 14, 2017 Active labor start time: 09:24 Medical induction of labor?: No Artificial rupture of membrane: Yes Artificial ROM date: Nov 14, 2017 Artifical ROM time: 09:14 Anesthesia: Epidural Episiotomy: None Vaginal Delivery: Normal, Spontaneous Presentation: Occiput anterior, Compound Nuchal Cord: None Delayed cord clamping (45 sec): Yes Infant: Male Delivery date: Nov 14, 2017 Delivery time: 14:13 One Minute : 8 Five Minute : 9 Weight: pending Placenta: Spontaneous delivery, Intact Laceration: No lacerations Estimated blood loss: 300cc Oc Joy Jr., MD Nov 14, 2017 14:28
[2017-11-14] MEDS ORDERED: OXYTOCIN 30 UNITS-500ML PREMIX 500 ML IV SCH (14:30)
[2017-11-14] MEDS ORDERED: SODIUM CHLORIDE 0.9% FLUSH 10 ML FLUSH IV FLUSH PRN (14:30)
[2017-11-14] MEDS ORDERED: BENZOCAINE 20% TOPICAL SPRAY 60 ML CAN TOPICAL PRN (14:30)
[2017-11-14] MEDS ORDERED: WITCH HAZEL 50%/GLYCERIN 12.5% 40 PAD JAR TOPICAL PRN (14:30)
[2017-11-14] MEDS ORDERED: oxyCODONE/ACETAMINOPHEN 5 MG/325 MG TAB PO PRN ×2 (14:30)
[2017-11-14] MEDS ORDERED: ALUMINUM/MAGNESIUM/SIMETH 30 ML CUP PO PRN (14:30)
[2017-11-14] MEDS ORDERED: ACETAMINOPHEN 325 MG TAB PO PRN (14:30)
[2017-11-14] MEDS ORDERED: MEASLES, MUMPS, RUBELLA VACCINE 0.5 ML VIAL SQ ONE (16:00)
[2017-11-14] MEDS ORDERED: DIPHTH/TETANUS/ACEL PERTUSSIS (BOOSTER) 0.5 ML VIAL/PFS IM ONE (16:00)
[2017-11-14] MEDS: SODIUM CHLORIDE 0.9% FLUSH 10 ML FLUSH IV FLUSH SCH (21:00)
[2017-11-14] MEDS ORDERED: ZOLPIDEM TARTRATE 5 MG TAB PO PRN (21:00)
[2017-11-14] MEDS: DOCUSATE SODIUM 50 MG/SENNA 8.6 MG TAB PO PRN (22:16)
[2017-11-14] MEDS: IBUPROFEN 800 MG TAB PO PRN (22:17)
[2017-11-15 08:00] VITALS: BP 103/66; PULSE 76; RESP 18; TEMP 97.5; O2SAT 99
[2017-11-15] MEDS: LACTATED RINGER'S 1000 ML INJ 1,000 ML IV SCH ×2 (09:06→16:44)
[2017-11-15] MEDS: IBUPROFEN 800 MG TAB PO PRN ×2 (09:12→17:11)
[2017-11-15] MEDS: SODIUM CHLORIDE 0.9% FLUSH 10 ML FLUSH IV FLUSH SCH (09:12)
--- NOTE | 2017-11-15 10:37 | HHI.OB ---
Subjective Post Day: 1 Remarks day #1. AFVSS overnight. Pain minimal. Decreased lochia. Denies dysuria. No breast tenderness. She is feeding the baby via breast. Appetite good. No nausea or vomiting. Endorses flatus. Endorses bowel movement. Ambulating well. Denies calf pain, shortness of breath, or cough. Otherwise, she is doing well this morning and has no other complaints. Objective Vitals/I&O Vital Signs Date Time Temp Pulse Resp B/P (MAP) Pulse Ox O2 Delivery O2 Flow Rate FiO2 11/15/17 08:00 97.5 76 18 103/66 (78) 99 Objective Remarks GENERAL: Well-nourished, well-developed patient. CARDIOVASCULAR: Regular rate and rhythm without murmurs, gallops, or rubs. RESPIRATORY: Breath sounds equal bilaterally. No accessory muscle use. ABDOMEN/GI: Abdomen soft, non-tender. Fundus: Firm, non-tender at umbilicus. GENITOURINARY: Light to moderate bleeding. EXTREMITIES: No cyanosis or edema, non-tender, without signs of DVT. Medications and IVs Current Medications Medications (Trade) Dose Ordered Sig/Karrie Route Start Time Stop Time Status Last Admin Lactated Ringer's 1,000 ml @ 125 mls/hr Q8H IV 11/14/17 01:06 11/14/17 10:01 Lactated Ringer's 1,000 ml @ 3,000 mls/hr Q20M PRN IV 11/14/17 01:06 Sodium Chloride 500 ml @ 1,000 mls/hr ONCE PRN IV 11/14/17 01:15 11/17/17 01:14 Sodium Chloride 1,000 ml @ 100 mls/hr Q10H PRN IV 11/14/17 01:26 (Xylocaine 1% Inj (50 ml)) 0.1 ml UNSCH X1 PRN I-DERMAL 11/14/17 01:15 11/17/17 01:14 (Bicitra Liq) 30 ml CLINICAL TECHNOLOGIST PO 11/14/17 01:15 11/18/17 01:14 (fentaNYL INJ) 50 mcg Q1H PRN IV PUSH 11/14/17 01:15 (fentaNYL INJ) 100 mcg Q1H PRN IV PUSH 11/14/17 01:15 11/14/17 07:31 (Xylocaine 1% Inj (50 ml)) 10 ml UNSCH X1 PRN INFIL 11/14/17 01:15 11/16/17 01:14 (Muri-Lube Oil) 10 ml UNSCH PRN TOPICAL 11/14/17 01:15 Oxytocin 500 ml @ 0 mls/hr TITRATE PRN IV 11/14/17 01:15 11/14/17 10:08 Fentanyl/ Bupivacaine/ Sodium Chlor 150 ml @ 11 mls/hr TITRATE PRN EPIDURAL 11/14/17 10:00 (NS Flush) 2 ml BID IV FLUSH 11/14/17 21:00 (NS Flush) 2 ml UNSCH PRN IV FLUSH 11/14/17 14:30 (Tylenol) 650 mg Q4H PRN PO 11/14/17 14:30 11/14/17 22:16 (Motrin) 800 mg Q8H PRN PO 11/14/17 14:30 11/15/17 09:12 (Percocet 5-325 Mg) 1 tab Q4H PRN PO 11/14/17 14:30 (Percocet 5-325 Mg) 2 tab Q4H PRN PO 11/14/17 14:30 (Americaine 20% Top Spr) 1 spray Q4H PRN TOPICAL 11/14/17 14:30 (Tucks Pads) 1 applic QID PRN TOPICAL 11/14/17 14:30 (Radha-Colace) 2 tab Q12H PRN PO 11/14/17 14:30 11/14/17 22:16 (Ambien) 5 mg HS PRN PO 11/14/17 21:00 (Mag-Al Plus Susp Liq) 15 ml Q8H PRN PO 11/14/17 14:30 (Zofran Odt) 4 mg Q6H PRN PO 11/14/17 14:30 Assessment/Plan Assessment and Plan 22y/o who is PPD#1 s/p . -Continue routine care. -Percocet and Motrin PRN pain. -Encouraged OOB. Advised pelvic rest for 6 wks. -Will need a f/u appt. within 6 wks. -Re: ctrl, she would like IUD -D/c in 1-2 more days. dw OB attending Howard Wilkerson MD R2 Nov 15, 2017 10:37
[2017-11-15] MEDS: DOCUSATE SODIUM 50 MG/SENNA 8.6 MG TAB PO PRN (17:10)
--- NOTE | 2017-11-16 08:36 | HHI.OB ---
Subjective Remarks Patient is a 22-year-old delivered at 39 weeks and 0 days. Patient is day 2 after . Patient's pain is well-controlled. Patient reports eating and drinking without any nausea or vomiting. Patient reports minimal bleeding. Patient has passed gas but no bowel movements. Patient is walking without lower extremity pain or shortness of breath. Patient reports desire for contraception with an IUD as an outpatient and breast-feeding. (Aniket Horton MD R1) Remarks Patient seen and evaluated with resident under direct supervision, agree with assessment and plan. (Harry Christianson MD) Objective Objective Remarks GENERAL: Well-nourished, well-developed patient. CARDIOVASCULAR: Regular rate and rhythm without murmurs, gallops, or rubs. RESPIRATORY: Breath sounds equal bilaterally. No accessory muscle use. ABDOMEN/GI: Abdomen soft, non-tender. Fundus: Firm, non-tender at umbilicus. GENITOURINARY: Light to moderate bleeding. EXTREMITIES: No cyanosis or edema, non-tender, without signs of DVT. Medications and IVs Current Medications Medications (Trade) Dose Ordered Sig/Karrie Route Start Time Stop Time Status Last Admin Lactated Ringer's 1,000 ml @ 125 mls/hr Q8H IV 11/14/17 01:06 11/14/17 10:01 Lactated Ringer's 1,000 ml @ 3,000 mls/hr Q20M PRN IV 11/14/17 01:06 Sodium Chloride 500 ml @ 1,000 mls/hr ONCE PRN IV 11/14/17 01:15 11/17/17 01:14 Sodium Chloride 1,000 ml @ 100 mls/hr Q10H PRN IV 11/14/17 01:26 (Xylocaine 1% Inj (50 ml)) 0.1 ml UNSCH X1 PRN I-DERMAL 11/14/17 01:15 11/17/17 01:14 (Bicitra Liq) 30 ml SENIOR VALIDATION ENGINEER PO 11/14/17 01:15 11/18/17 01:14 (fentaNYL INJ) 50 mcg Q1H PRN IV PUSH 11/14/17 01:15 (fentaNYL INJ) 100 mcg Q1H PRN IV PUSH 11/14/17 01:15 11/14/17 07:31 (Muri-Lube Oil) 10 ml UNSCH PRN TOPICAL 11/14/17 01:15 Oxytocin 500 ml @ 0 mls/hr TITRATE PRN IV 11/14/17 01:15 11/14/17 10:08 Fentanyl/ Bupivacaine/ Sodium Chlor 150 ml @ 11 mls/hr TITRATE PRN EPIDURAL 11/14/17 10:00 (NS Flush) 2 ml BID IV FLUSH 11/14/17 21:00 (NS Flush) 2 ml UNSCH PRN IV FLUSH 11/14/17 14:30 (Tylenol) 650 mg Q4H PRN PO 11/14/17 14:30 11/14/17 22:16 (Motrin) 800 mg Q8H PRN PO 11/14/17 14:30 11/15/17 17:11 (Percocet 5-325 Mg) 1 tab Q4H PRN PO 11/14/17 14:30 (Percocet 5-325 Mg) 2 tab Q4H PRN PO 11/14/17 14:30 (Americaine 20% Top Spr) 1 spray Q4H PRN TOPICAL 11/14/17 14:30 (Tucks Pads) 1 applic QID PRN TOPICAL 11/14/17 14:30 (Radha-Colace) 2 tab Q12H PRN PO 11/14/17 14:30 11/15/17 17:10 (Ambien) 5 mg HS PRN PO 11/14/17 21:00 (Mag-Al Plus Susp Liq) 15 ml Q8H PRN PO 11/14/17 14:30 (Zofran Odt) 4 mg Q6H PRN PO 11/14/17 14:30 (Aniket Horton MD R1) Assessment/Plan Assessment and Plan 22y/o who is PPD#2 s/p . -Continue routine care. -Percocet and Motrin PRN pain. -Encouraged OOB. Advised pelvic rest for 6 wks. -Will need a f/u appt. within 6 wks. -Re: ctrl, she would like IUD arranged as an outpatient -D/c today dw OB attending (Aniket Horton MD R1) Aniket Horton MD R1 Nov 16, 2017 08:36 Harry Christianson MD Nov 16, 2017 09:53
[2017-11-16] MEDS ORDERED: PERI PO (09:39)
[2017-11-16] MEDS ORDERED: IBUP1TAB7 PO (09:39)
[2017-11-16] MEDS: LACTATED RINGER'S 1000 ML INJ 1,000 ML IV SCH (09:39)
[2017-11-16] MEDS: SODIUM CHLORIDE 0.9% FLUSH 10 ML FLUSH IV FLUSH SCH (09:39)
--- NOTE | 2017-11-16 09:39 | HHI.DCPOC ---
Discharge Care Plan Diagnosis: (1) (spontaneous vaginal delivery) Report Symptoms to Your Doctor -Temperature above 100.5 degrees -Redness, of incision or excessive or foul smelling drainage -Unusual pain or calf pain -Increased vaginal bleeding -Painful or difficulty urinating -Feelings of extreme sadness or anxiety after 2 weeks Goals to Promote Your Health * To prevent worsening of your condition and complications * To maintain your health at the optimal level Directions to Meet Your Goals Take your medications as prescribed Follow your dietary instruction Follow activity as directed Ensure plenty of rest for recovery Drink fluids for hydration Keep your appointments as scheduled Take your immunizations and boosters as scheduled If your symptoms worsen call your PCP, if no PCP go to Urgent Care Center or Emergency Room Smoking is Dangerous to Your Health. Avoid second hand smoke Call the 24-hour crisis hotline for domestic abuse at Aniket Horton MD R1 Nov 16, 2017 09:39
== END 2017-11-16 16:25 | disposition home or self-care (01) | DRG 775 ==
LOC: HOBED 23:52 → H2EB 11-14 01:12 → H1EA 11-14 17:20
PROVIDERS: ADMIT Obstetrics & Gynecology; ATTEND Obstetrics & Gynecology
PROC: 10E0XZZ Delivery of Products of Conception, External Approach (ICD-10-PCS; principal; 2017-11-14)
PROC: 00HU33Z Insertion of Infusion Device into Spinal Canal, Percutaneous Approach (ICD-10-PCS; 2017-11-14)
PROC: 3E0R3BZ Introduction of Anesthetic Agent into Spinal Canal, Percutaneous Approach (ICD-10-PCS; 2017-11-14)
DX: O80 Encounter for full-term uncomplicated delivery (principal); Z3A.39 39 weeks gestation of pregnancy; Z37.0 Single live birth
CPT/HCPCS: 59025; 80307; 81001; 85025; 86900; 86901; G0481; J2590; J3010; J7120